=== PATIENT | female | born 1965 | race African-American/Black ===

== ENCOUNTER 2020-01-06 05:53 | Inpatient (IN) | payer OTHER ==
[2020-01-06] MEDS ORDERED: morphine CARPU-JECT 4 MG/1 ML DISP.SYRIN IVPUSH ONE (06:09)
--- NOTE | 2020-01-06 06:12 | PDOC ---
History of Present Illness - General Chief Complaint: Wound Stated Complaint: WOUND - History of Present Illness Initial Comments: 01/06/20 06:12 Ms. Purcell is a 54 yo female w/ pmh of 1 year history of R breast wound following biopsy. Patient reports wound grew following biopsy and she has been told intermittently that it was and wasn't cancerous by different physicians. Patient reports she woke up this morning and noted blood at site and called ambulance. No other complaints at this time. The patient denies chest pain, shortness of breath, headache and dizziness. Denies fever, chills, nausea, vomit, diarrhea and constipation. Denies dysuria, frequency, urgency and hematuria. Past History - Past Medical History Allergies/Adverse Reactions: Allergies Allergy/AdvReac Type Severity Reaction Status Date / Time No Known Allergies Allergy Verified 01/06/20 06:05 - Psycho Social/Smoking Cessation Hx Smoking History: Never smoked Have you smoked in the past 12 months: No Information on smoking cessation initiated: No Hx Alcohol Use: No Drug/Substance Use Hx: No Review of Systems - Review of Systems Comments:: 01/06/20 06:26 GENERAL/CONSTITUTIONAL: No fever or chills. No weakness. HEAD, EYES, EARS, NOSE AND THROAT: No change in vision. No ear pain or discharge. No sore throat. CARDIOVASCULAR: No chest pain or shortness of breath RESPIRATORY: No cough, wheezing, or hemoptysis. GASTROINTESTINAL: No nausea, vomiting, diarrhea or constipation. GENITOURINARY: No dysuria, frequency, or change in urination. MUSCULOSKELETAL: No joint or muscle swelling or pain. No neck or back pain. SKIN: +Breast wound (R) x1 year as described. NEUROLOGIC: No headache, vertigo, loss of consciousness, or change in strength/ sensation. ENDOCRINE: No increased thirst. No abnormal weight change HEMATOLOGIC/LYMPHATIC: No anemia, easy bleeding, or history of blood clots. ALLERGIC/IMMUNOLOGIC: No hives or skin allergy. *Physical Exam - Vital Signs Last Vital Signs Temp Pulse Resp BP Pulse Ox 99.9 F H 122 H 20 117/48 L 98 01/06/20 05:54 01/06/20 05:54 01/06/20 05:54 01/06/20 05:54 01/06/20 05:54 - Physical Exam 01/06/20 06:27 GENERAL: Awake, alert, and fully oriented, in no acute distress HEAD: No signs of trauma, normocephalic, atraumatic EYES: PERRLA, EOMI, sclera anicteric, conjunctiva clear ENT: Auricles normal inspection, hearing grossly normal, nares patent, oropharynx clear without exudates. Moist mucosa NECK: Normal ROM, supple, no lymphadenopathy, JVD, or masses LUNGS: No distress, speaks full sentences, clear to auscultation bilaterally HEART: Regular rate and rhythm, normal S1 and S2, no murmurs, rubs or gallops, peripheral pulses normal and equal bilaterally. ABDOMEN: Soft, nontender, normoactive bowel sounds. No guarding, no rebound. No masses EXTREMITIES: Normal inspection, Normal range of motion, no edema. No clubbing or cyanosis. NEUROLOGICAL: Cranial nerves II through XII grossly intact. Normal speech, normal gait, no focal sensorimotor deficits SKIN: [id number] fungating mass noted to R inferior breast. Otherwise warm, dry, normal turgor, no rashes or lesions noted. Medical Decision Making - Medical Decision Making 01/06/20 06:43 Ms. Purcell is a 54 yo female w/ pmh as described who presents for evaluation of breast wound. Upon exam wound appears chronic and fungating however is hemostatic at this time. Patient will be evaluated for infection complicating picture. As history and exam is extremely concerning for advanced cancer, plan for patient to be admitted for further workup. 01/06/20 06:50 Patient signed out to Dr. Mckeon for further evaluation. Discharge - Discharge Information Problems reviewed: Yes Clinical Impression/Diagnosis: Breast cancer Qualifiers: Breast location: unspecified site of breast Estrogen receptor status: unspecified Patient sex: female Laterality: unspecified laterality Qualified Code(s): C50.919 - Malignant neoplasm of unspecified site of unspecified female breast - Admission Yes - Follow up/Referral - Patient Discharge Instructions - Post Discharge Activity
[2020-01-06] MEDS ORDERED: morphine SULFATE 4 MG/ML VIAL ONE (06:13)
[2020-01-06] MEDS ORDERED: SODIUM CHLORIDE 1,000 ML IV STA ×2 (06:29→09:41)
--- NOTE | 2020-01-06 06:29 | PDOC ---
Attending Attestation - Resident Resident Name: Israel Webb - ED Attending Attestation I have performed the following: I have examined & evaluated the patient, The case was reviewed & discussed with the resident, I agree w/resident's findings & plan, Exceptions are as noted - HPI HPI: 01/06/20 07:26 See resident HPI - Physicial Exam PE: 01/06/20 07:26 Agree with documented exam - Medical Decision Making 01/06/20 07:26 54F denies pmh here for evaluation of breast wound. It has been progressive over the past year since a breast biopsy. Pt states that she has received contradictory diagnoses of cancer and not cancer. Wound is a fungating, [id number] mass with irregular border. Likely advanced cancer f/u labs, cxr, analgesia dispo per clinical course ladmit for coordination of care
--- NOTE | 2020-01-06 07:13 | PDOC ---
*Physical Exam - Vital Signs Last Vital Signs Temp Pulse Resp BP Pulse Ox 99.9 F H 122 H 20 117/48 L 98 01/06/20 05:54 01/06/20 05:54 01/06/20 05:54 01/06/20 05:54 01/06/20 05:54 ED Treatment Course - LABORATORY CBC & Chemistry Diagram: 01/06/20 06:45 01/06/20 06:45 - Medications Given in the ED: ED Medications Discontinued Medications Generic Name Dose Route Start Last Admin Trade Name Pj PRN Reason Stop Dose Admin Morphine Sulfate 4 mg 01/06/20 06:09 01/06/20 06:54 Morphine Injection - IVPUSH 01/06/20 06:10 4 mg ONCE ONE Administration Medical Decision Making - Medical Decision Making 01/06/20 07:[address] Webb. Patient is 54F here today with breast mass /wound. Wound is fungating and infected. Will treat with clindamycin. Concern also for lack of follow up. Dr Almeida consulted. CBC shows mild anemia CMP, CXR, pending EKG shows sinus tachycardia with rate of 106. No st elevations/depressions. Normal axis. Normal intervals. No significant t wave abnormalities. 01/06/20 08:48 CMP reassuring CXR shows no acute process Medicine paged 01/06/20 09:24 D/W Dr Corrales. Discharge - Discharge Information Problems reviewed: Yes Clinical Impression/Diagnosis: Breast cancer Qualifiers: Breast location: unspecified site of breast Estrogen receptor status: unspecified Patient sex: female Laterality: unspecified laterality Qualified Code(s): C50.919 - Malignant neoplasm of unspecified site of unspecified female breast Breast wound Qualifiers: Encounter type: initial encounter Laterality: right Qualified Code(s): S21.001A - Unspecified open wound of right breast, initial encounter Condition: Stable - Admission Yes - Follow up/Referral - Patient Discharge Instructions - Post Discharge Activity
[2020-01-06 07:14] LABS: BASO % 0.8 % (0-2.0); EOS % 0.2 % (0-4.5); HEMATOCRIT 29.7 % (32.4-45.2); HEMOGLOBIN 9.9 GM/dL (10.7-15.3); LYMPH % 18.6 % (8-40); MCH 27.2 pg (25.7-33.7); MCHC 33.2 g/dl (32.0-36.0); MEAN CELL VOLUME 81.9 fl (80-96); MEAN PLT VOLUME 7.8 fl (7.5-11.1); MONO % 4.4 % (3.8-10.2); PLATELET COUNT 196 K/MM3 (134-434); RBC 3.63 M/mm3 (3.60-5.2); RDW 17.8 % (11.6-15.6); WHITE BLOOD COUNT 9.8 K/mm3 (4.0-10.0)
[2020-01-06 07:47] LABS: ALBUMIN 2.9 g/dl (3.4-5.0); BILIRUBIN,TOTAL 0.3 mg/dL (0.2-1); BLOOD UREA NITROGEN 9.1 mg/dL (7-18); CALCIUM 8.6 mg/dL (8.5-10.1); CREATININE 0.9 mg/dL (0.55-1.3); POTASSIUM 3.9 mmol/L (3.5-5.1); TOT PROT 6.9 g/dl (6.4-8.2)
[2020-01-06] MEDS ORDERED: CLINDAMYCIN 600MG PREMIX IVPB 600 MG/50 ML BAG IVPB ONE ×2 (08:47→09:06)
[2020-01-06] MEDS ORDERED: ACETAMINOPHEN 1000 MG/100 ML VIAL (NON FORMULARY) IVPB ONE (09:03)
[2020-01-06] MEDS ORDERED: ACETAMINOPHEN INJECTION 100 ML IVPB ONE (09:05)
[2020-01-06] MEDS ORDERED: CLINDAMYCIN 600MG PREMIX IVPB 600 MG/50 ML BAG IVPB SCH (11:00)
--- NOTE | 2020-01-06 11:26 | HP ---
CHIEF COMPLAINT: Increased bleeding from breast wound PCP: None HISTORY OF PRESENT ILLNESS: Pt. is a 54 y.o. F w/ PMHx. of Breast CA, presents for management of R. breast wound. Sister and Tejas at present bedside. Pt. states that she had a biopsy at [facility] last Spring where she began the workup process. Pt. was unsatisfied with her treatment and sought a second opinion at [facility] which she was equally as unsatisfied with. Pt. states she gets her Anastrazole from Dr. Rodas ([facility]) who told her that this is the only thing to do since Pt. does not want chemotherapy. Pt. states she has not followed up with her oncologist but rather has been going to wound care clinic at [facility] once a month since diagnosis. Pt. states that she has been changing the dressing herself with the assistance of her sister and Fikiko. Pt. endorses being depressed and has suicidal ideation however no plan. On revisit Pt. answered question "How can I make you feel better?" with "Do you have a gun?" Pt. denies intent to harm anyone else. Pt. endorses foul smelling odor from the wound and intermittent bleeding. Pt. states that over the last 2 weeks she has been feeling increasingly tired and has been relatively bed bound. Pt. denies any recent weight loss (per Fiance Pt. has lost ~10 lbs.), tenderness to the mass, fever, chills, constipation, diarrhea, chest pain or shortness of breath. Pt. states she has never had a colonoscopy. Pt. states her last pap smear was about 4 years ago and that everything was negative. Pt. refuses Flu shot and states she has not had one. ER course was notable for: (1)CXR, IVF, Consult to Dr. Almeida. (2) (3) Recent Travel: No PAST MEDICAL HISTORY: Breast CA PAST SURGICAL HISTORY: None Social History: Smokin/2 PPD x 20 years, Quit 2 years ago Alcohol: Denies Drugs: Denies Pt. lives at home with her Fiance who has been having to increasingly help Pt. with daily activities with Pt.'s sister. 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 Allergies No Known Allergies Allergy (Verified 01/06/20 06:05) HOME MEDICATIONS: Home Medications Medication Instructions Recorded Anastrozole [Arimidex -] 1 mg PO DAILY 01/06/20 REVIEW OF SYSTEMS As above PHYSICAL EXAMINATION Vital Signs - 24 hr 01/06/20 01/06/20 01/06/20 05:54 07:30 09:20 Temperature 99.9 F H 98.7 F Pulse Rate 122 H Pulse Rate [ 95 H 87 Apical] Respiratory 20 18 18 Rate Blood Pressure 117/48 L Blood Pressure 96/66 95/60 [Right Arm] O2 Sat by Pulse 98 97 98 Oximetry (%) GENERAL: Awake, alert, and fully oriented, in no acute distress. HEAD: Normal with no signs of trauma. EYES: Pupils equal, round and reactive to light, extraocular movements intact, sclera anicteric, conjunctiva clear. EARS, NOSE, THROAT: Ears normal, nares patent, oropharynx clear without exudates. Dry mucous membranes. NECK: Normal range of motion, supple without lymphadenopathy, JVD, or masses. LUNGS: Mild bibasilar crackles No accessory muscle use. HEART: Regular rate and rhythm, normal S1 and S2 without murmur ABDOMEN: Soft, nontender, not distended, normoactive bowel sounds, no guarding, no rebound, no masses. No hepatomegaly or splenomegaly. MUSCULOSKELETAL: Normal range of motion at all joints. No bony deformities or tenderness. No CVA tenderness. On R. breast 10 x 10 cm fungating mass with some purulent? drainage and necrotic rim around the borders. UPPER EXTREMITIES: 2+ radial pulses, warm, well-perfused. No cyanosis. No clubbing. No peripheral edema. No LAD palpated. LOWER EXTREMITIES: 2+ dorsal pedal pulses, warm, well-perfused. No calf tenderness. No peripheral edema. NEUROLOGICAL: Normal speech. No focal deficits PSYCHIATRIC: Cooperative. Good eye contact. Appropriate mood and affect. Anxious and Depressed SKIN: Warm, dry except as above Laboratory Results - last 24 hr 01/06/20 01/06/20 06:45 06:45 WBC 9.8 RBC 3.63 Hgb 9.9 L Hct 29.7 L MCV 81.9 MCH 27.2 MCHC 33.2 RDW 17.8 H Plt Count 196 MPV 7.8 Absolute Neuts (auto) 7.4 Neutrophils % 76.0 Lymphocytes % 18.6 Monocytes % 4.4 Eosinophils % 0.2 Basophils % 0.8 Nucleated RBC % 0 Sodium 137 Potassium 3.9 Chloride 107 Carbon Dioxide 21 Anion Gap 9 BUN 9.1 Creatinine 0.9 Est GFR (CKD-EPI)AfAm 82.84 Est GFR (CKD-EPI)NonAf 71.48 Random Glucose 125 H Calcium 8.6 Total Bilirubin 0.3 AST 42 H ALT 37 Alkaline Phosphatase 190 H Total Protein 6.9 Albumin 2.9 L ASSESSMENT/PLAN: Pt. is a 54 y.o. F w/ PMHx. of Breast CA(on Anastrazole), presents for management of R. breast wound. #Metastatic R. Breast CA c/w Anastrazole f/u records at [facility], attempted to call ED to get records and was refused suspect Pt. has hormonal positive Breast CA given medication prescribed Heme/Onc consult appreciated Pt. resistant to chemotherapy Surgery consult appreciated f/u Echo Head CT Negative CT Chest/A/P: R. Pleural effusion, large exophytic mass, additional small R. breast mass w/ extensive lymphadenopathy, enlarged internal mammary lymph nodes , mild mediastinal and R hilar lymphadenopathy, scattered pulmonary nodules, mild retroperitoneal lymphadenopathy and multiple sclerotic bone lesions Tylenol and Morphine for pain control f/u CEA, CA 19-9, CA 125 #Normocytic Anemia Hgb: 9.9, MCV 81.9 f/u Iron studies, ferritin likely secondary to frequent blood loss from R. breast mass and #Hydronephrosis On Abd. US and CT A/P: there is a 10 x 8 mm obstructing calculus in R. proximal ureter, distended bladder Urology consult to Dr. Valdovinos Consult to ID appreciated Will start Meropenem 500mg Q8H, give Vanco 1gm for possibly infected stone. #Depression Pt. endorses clear suicidal ideation without planm but has made several comments as noted above that raise some alarm. Nevertheless Pt. states she would like to be full code, therefore will not place Pt. on 1:1 at this time, but consult to Dr. Avery is appreciated for medication guidance. Consult to palliative care is also appreciated. #FEN NS @ 100 monitor electrolytes and replete as needed Regular Diet #DVT Ppx. Lovenox 40mg SQ Visit type - Emergency Visit Emergency Visit: Yes ED Registration Date: 01/06/20 Care time: The patient presented to the Emergency Department on the above date and was hospitalized for further evaluation of their emergent condition. - New Patient This patient is new to me today: Yes Date on this admission: 01/08/20 - Critical Care Critical Care patient: No ATTENDING PHYSICIAN STATEMENT I saw and evaluated the patient. I reviewed the resident's note and discussed the case with the resident. I agree with the resident's findings and plan as documented. SUBJECTIVE: OBJECTIVE: ASSESSMENT AND PLAN:
--- NOTE | 2020-01-06 13:25 | CONSULT ---
Consultation: CONSULT SERVICE: Hematology/Oncology Resident HISTORY OF PRESENT ILLNESS: 54yo F with h/o Breast Ca (unknown typing; biopsy and w/u performed with Dr. Rodas ([facility]). At that time pt received a biopsy, however did not follow-up and had resulting breast wound that did not heal. She went to [facility] for a second opinion and she once again did not continue to follow there. Pt has been going tot he wound care clinic at [facility] every month since her diagnosis about 1 year prior and has not followed with any oncologist since. Pt reports receiving Anastrozole for the past year and does not recall any other medications she has had prior. Pt is highly resistant to any chemotherapy. Pt's wound progressed with her noticing foul odors, intermittent bleeding and questionable purulence. At this point she sought medical evaluation and presented to this facility Currently, pt is depressed and expresses suicidal ideation with no plan. She endorses generalized fatigue and has declined in her functional status since diagnosis with dependence on her sister and fiance for dressing changes of her breast. Pt endorses decreased appetite. Denies any fever/chills, rigors, cough, SOB, CP/discomfort, abdominal pain, increasing edema in any extremity, myalgias , arthralgias, numbness/tingling, n/v/d/c PMHx: As above PSHx: Breast biopsy SoHx: Tobacco - 10 pack year history; quit 2 years ago Alcohol - Denies Drugs - Denies REVIEW OF SYSTEMS: As per HPI PHYSICAL EXAMINATION Vital Signs - 24 hr 01/06/20 01/06/20 01/06/20 05:54 07:30 09:20 Temperature 99.9 F H 98.7 F Pulse Rate 122 H Pulse Rate [ 95 H 87 Apical] Respiratory 20 18 18 Rate Blood Pressure 117/48 L Blood Pressure 96/66 95/60 [Right Arm] O2 Sat by Pulse 98 97 98 Oximetry (%) GENERAL: Awake, alert, and fully oriented,NAD HEENT: NC/AT, ROSELINE, EOMI, sclera anicteric, MMM without thrush NECK: No cervical lymphadenopathy LUNGS: Mild bibasilar crackles No accessory muscle use. BREAST: 10x10 R necrotic wound/mass at 8:00 positioning, minor purulence noted on wound. HEART: RRR, normal S1 and S2 without murmur ABDOMEN: Soft, NT/ND, normoactive bowel sounds, no guarding, no rebound, no masses. No hepatomegaly or splenomegaly. EXTREMITIES: 2+ DP pulses, warm, No calf tenderness. No peripheral edema. PSYCHIATRIC: Cooperative. Good eye contact. Anxious and Depressed LN: R axillary lymphadenopathy appreciated Laboratory Results - last 24 hr 01/06/20 01/06/20 06:45 06:45 WBC 9.8 RBC 3.63 Hgb 9.9 L Hct 29.7 L MCV 81.9 MCH 27.2 MCHC 33.2 RDW 17.8 H Plt Count 196 MPV 7.8 Absolute Neuts (auto) 7.4 Neutrophils % 76.0 Lymphocytes % 18.6 Monocytes % 4.4 Eosinophils % 0.2 Basophils % 0.8 Nucleated RBC % 0 Sodium 137 Potassium 3.9 Chloride 107 Carbon Dioxide 21 Anion Gap 9 BUN 9.1 Creatinine 0.9 Est GFR (CKD-EPI)AfAm 82.84 Est GFR (CKD-EPI)NonAf 71.48 Random Glucose 125 H Calcium 8.6 Total Bilirubin 0.3 AST 42 H ALT 37 Alkaline Phosphatase 190 H Total Protein 6.9 Albumin 2.9 L Active Medications Generic Name Dose Route Start Last Admin Trade Name Freq PRN Reason Stop Dose Admin Enoxaparin Sodium 40 mg 01/06/20 11:30 Lovenox - SQ DAILY [facility] Clindamycin Phosphate 600 mg in 50 mls @ 100 mls/hr 01/06/20 18:00 Cleocin 600 Mg Premix Ivpb - IVPB Q8H-IV PAMELLA Protocol Sodium Chloride 1,000 mls @ 100 mls/hr 01/06/20 11:30 Normal Saline - IV ASDIR PAMELLA Morphine Sulfate 2 mg 01/06/20 11:22 Morphine Sulfate IVPUSH Q4H PRN PAIN LEVEL 6-10 ASSESSMENT/PLAN: Stage IV Breast Ca with mets to LN throughout Necrotic R breast mass Normocytic anemia Depression with suicidal ideation --CT imaging performed and awaiting read --? pulmonary nodules alongside of axillary lymphadenopathy R (by my read) --In interim trying to receive records from [facility] services regarding pathology, hormonal positives and metastatic workup --Bone scan with potential bone biopsy for confirmation of mets --Patient reportedly on anastrozole and would ideally need it for minimum 3-5 years pending pathology typing --Due to advanced local invasion would need surgical evaluation for resection recommendations vs. wound care --Anemia likely related to above and can perform iron studies with ferritin with AM labs --Psych evaluation appreciated for suicidal ideation without planning --Rest per primary teams and will follow alongside --CA 19-9 and CA 125 already ordered. will f/u Case discussed with Dr. Ewelina Hopkins, DO - IM PGy-3 Visit type - Emergency Visit Emergency Visit: Yes ED Registration Date: 01/06/20 Care time: The patient presented to the Emergency Department on the above date and was hospitalized for further evaluation of their emergent condition. - New Patient This patient is new to me today: Yes Date on this admission: 01/06/20 - Critical Care Critical Care patient: No ATTENDING PHYSICIAN STATEMENT I saw and evaluated the patient. I reviewed the resident's note and discussed the case with the resident. I agree with the resident's findings and plan as documented. SUBJECTIVE: OBJECTIVE: ASSESSMENT AND PLAN:
[2020-01-06] MEDS: SODIUM CHLORIDE 1,000 ML IV SCH (14:30)
--- NOTE | 2020-01-06 15:05 | ECHO ---
Name: JEREMY LA Exam:Adult Echocardiogram Study Date: 01/06/2020 01:21 PM Age: 54 yrs Reason For Study: Cancer Height: 60 in Weight: 110 lb BSA: 1.4 m2 MMode/2D Measurements & Calculations IVSd: 1.0 cm Ao root diam: 2.8 cm LVIDd: 4.1 cm LA dimension: 2.7 cm LVIDs: 2.7 cm ACS: 1.9 cm LVPWd: 0.90 cm EDV(Teich): 73.4 ml LVOT diam: 2.0 cm ESV(Teich): 26.6 ml LAV (MOD-bp): 33.0 ml TAPSE: 2.3 cm RV S Randell: 15.9 cm/sec Doppler Measurements & Calculations MV E max randell: 72.6 cm/sec Ao V2 max: 111.0 cm/sec MV A max randell: 54.8 cm/sec Ao max P.9 mmHg MV E/A: 1.3 Ao V2 mean: 79.5 cm/sec MV dec time: 0.13 sec Ao mean P.8 mmHg Ao V2 VTI: 23.5 cm GLORIA(I,D): 1.9 cm2 GLORIA(V,D): 2.2 cm2 LV V1 max P.5 mmHg MR max randell: 469.1 cm/sec LV V1 mean P.0 mmHg MR max P.0 mmHg LV V1 max: 79.5 cm/sec LV V1 mean: 46.4 cm/sec LV V1 VTI: 14.7 cm SV(LVOT): 45.5 ml TR max randell: 208.3 cm/sec TR max P.6 mmHg PA V2 max: 84.2 cm/sec PI end-d randell: 80.1 cm/sec PA max P.8 mmHg Med Peak E' Randell: 6.3 cm/sec Pulm Sys Randell: 78.5 cm/sec Med E/e': 11.5 Pulm Laird Randell: 64.7 cm/sec Lat Peak E' Randell: 11.0 cm/sec Pulm S/D: 1.2 Lat E/e': 6.6 Left Ventricle Left ventricular systolic function is normal. Ejection Fraction = 55-60%. The transmitral spectral Do ppler flow pattern is normal for age. Right Ventricle The right ventricle is normal in size and function. Atria Normal left and right atrial size and function. Mitral Valve The mitral valve is normal in structure and function. There is no mitral valve stenosis. There is mil d mitral regurgitation. Tricuspid Valve The tricuspid valve is normal in structure and function. There is mild tricuspid regurgitation. Right ventricular systolic pressure is normal. Aortic Valve The aortic valve opens well. No hemodynamically significant valvular aortic stenosis. No aortic regur gitation is present. Pulmonic Valve The pulmonic valve is not well seen, but is grossly normal. There is no pulmonic valvular stenosis. T race to mild pulmonic valvular regurgitation. Great Vessels The aortic root is normal size. Pericardium/Pleura There is no pericardial effusion. Interpretation Summary Left ventricular systolic function is normal. Ejection Fraction = 55-60%. The right ventricle is normal in size and function. There is mild mitral regurgitation. There is mild tricuspid regurgitation. Right ventricular systolic pressure is normal. There is no pericardial effusion. MD Harkins *Graciela 01/06/2020 03:04 PM
[2020-01-06] MEDS ORDERED: VANCOMYCIN 1 GM in D5W (PRE-DOCKED) 1,000 MG/250 ML IVPB ONE (15:37)
--- NOTE | 2020-01-06 16:06 | CON.GU ---
Consult Consult Specialty:: Referred by:: Medicine Reason for Consultation:: right ureteral stone, hydro - History of Present Illness Chief Complaint: right ureteral stone, hydro History of Present Illness: 54 year old with a previous history of untreated kidney stones who presents with an infected, fungating breast mass c/w malignancy. During CT scan for metastatic work up she was noted to have bilateral renal stones and a 9.6mm proximal ureteral calculus with hydro. Patient does not report any recent renal colic and appears well and non-toxic - History Source History Provided By: Patient Limitations to Obtaining History: No Limitations - Past Medical History Renal/: Yes: Renal Calculi - Alcohol/Substance Use Hx Alcohol Use: No - Smoking History Smoking history: Never smoked Have you smoked in the past 12 months: No Home Medications - Allergies Allergies/Adverse Reactions: Allergies Allergy/AdvReac Type Severity Reaction Status Date / Time No Known Allergies Allergy Verified 01/06/20 06:05 - Home Medications Home Medications: Ambulatory Orders Anastrozole [Arimidex -] 1 mg PO DAILY 01/06/20 Review of Systems - Review of Systems Genitourinary: denies: Flank Pain Physical Exam- Vital Signs: Vital Signs Temperature 98.7 F 01/06/20 07:30 Pulse Rate 87 01/06/20 09:20 Respiratory Rate 18 01/06/20 09:20 Blood Pressure 95/60 01/06/20 09:20 O2 Sat by Pulse Oximetry (%) 98 01/06/20 09:20 Renal/: No: CVA Tenderness - Left, CVA Tenderness - Right, Conde Present, Hematuria Kidneys: No: Flank Pain Left, FLank Pain Right Labs: CBC, BMP 01/06/20 06:45 01/06/20 06:45 Imaging - Results Cat Scan: Report Reviewed Problem List - Problems (1) Right ureteral calculus Assessment/Plan: patient is asymptomatic currently and does not appear septic or toxic. She comfortable in bed eating. Her WBC is normal. Infected stone does not appear likely but urinanalysis and urine culture have not been sent. These are ordered. She will need ureteroscopy and laser lithotripsy with stent however her breast mass appears to be more acute. will follow Code(s): N20.1 - CALCULUS OF URETER (2) Hydronephrosis, right Code(s): N13.30 - UNSPECIFIED HYDRONEPHROSIS
[2020-01-06] MEDS ORDERED: DEXTROSE 5%-WATER 100 ML IVPB ONE (16:33)
[2020-01-06] MEDS ORDERED: MEROPENEM 500 MG VIAL (RESTRICTED TO ID) IVPB ONE (16:33)
[2020-01-06] MEDS: MEROPENEM 500 MG in DEXTROSE 5%-WATER 100 ML IVPB SCH (16:42)
--- NOTE | 2020-01-06 17:45 | CON.PSY ---
Psychiatry Consult Chief Complaint: I am not suicidal , i was upset. I dont have a psych illness. - Previous Psychiatric Treatment Outpatient: None Inpatient: None - Previous Substance Abuse Treatment Outpatient: None Inpatient: None - Current Medications Current Medications: Active Medications Anastrozole (Arimidex -) 1 mg PO DAILY PAMELLA Enoxaparin Sodium (Lovenox -) 40 mg SQ DAILY PAMELLA Clindamycin Phosphate (Cleocin 600 Mg Premix Ivpb -) 600 mg in 50 mls @ 100 mls /hr IVPB Q8H-IV PAMELLA; Protocol Sodium Chloride (Normal Saline -) 1,000 mls @ 100 mls/hr IV ASDIR PAMELLA Last Admin: 01/06/20 14:30 Dose: Not Given Meropenem 500 mg/ Dextrose 100 mls @ 200 mls/hr IVPB Q8H-IV PAMELLA Meropenem 500 mg/ Dextrose 100 mls @ 200 mls/hr IVPB Q8H-IV PAMELLA Stop: 01/07/20 10:29 Last Admin: 01/06/20 16:42 Dose: 200 mls/hr Morphine Sulfate (Morphine Sulfate) 2 mg IVPUSH Q4H PRN PRN Reason: PAIN LEVEL 6-10 - Allergies Allergies: Allergies Allergy/AdvReac Type Severity Reaction Status Date / Time No Known Allergies Allergy Verified 01/06/20 06:05 - Current Living Status Usual Living Arrangement: With Significant Other - Current Mental Status Evaluation Appearance: Well Groomed Attitude: Cooperative - Affect Affect: Full Range Appropriateness: Appropriate to Content - Mood Mood: Euthymic - Speech/Language Expressive: Coherent - Psychomotor Activity Psychomotor Activity: Normal - Thought Process Thought Process: Intact - Thought Content Hallucinations: Absent Delusions: Absent - Self Perception Self Perception: No Impairment - Cognition Attention: Alert Orientation: Time Memory, Immediate Recall: Intact Memory, Short Term: 3/3 Memory, Remote with Promptin/3 - Concentration Serial Sevens Intact: Yes Simple Calculations Intact: Yes - Abstraction Proverb Interpretation: Intact Judgement: Intact - Insight Insight: Intact - Impulse Control Impulse Control: Good Control - Suicidal Ideation Suicidal Ideation: No - Homicidal Ideation Homicidal Ideation: No Assessment/Plan 1) No acute Psych illness. 2Patient is not Suicidal ar4t this time.
[2020-01-06] MEDS: CLINDAMYCIN 600MG PREMIX IVPB 600 MG/50 ML BAG IVPB SCH (18:13)
--- NOTE | 2020-01-06 18:17 | PN ---
Teaching Attending Note Name of Resident: Ran Corrales ATTENDING PHYSICIAN STATEMENT I saw and evaluated the patient. I reviewed the resident's note and discussed the case with the resident. I agree with the resident's findings and plan as documented. Seen and examined; please see resident note for further historical information. I personally verified all delgado historical information and exam findings. Personally interpreted all imaging and diagnostics and reviewed appropriate consults. I reviewed all labs and vital signs as per resident note and EMR as documented. I agree with the above assessment and plan unless supplemented by myself in the following. Seen and examined, pending oncology records. The patient is nonsuicidal per my assessment and was having some success of passive ideation. Furthermore, the patient is indicated is being non-compliant with her prior recommended treatment of breast cancer.She has a fungating mass on her right upper extremity near the axilla and is pending imaging. Oncology will be consulted as well as wound care. Surgical services will be consulted for biopsy. We will obtain old records. 10 item review of systems completed and is negative aside from as discussed in the subjective data in my own/the resident documentation. VS, labs, imaging reviewed NAD, AAO, resting comfortably in bed. RRR s1/2 no mgr Normal muscle tone, moves all 5 extremities with normal apparent strength Neck is supple, trachea midline, no pio LN Lungs CTAB with sym expansion NT ND +BS no pio organomegaly CN2-12 wnl; no FND NC AT EOMI PERRLA Normal mood, appropriate behavior, euthymic affect No skin breakdown or rashes noted Assessment and plan: Patient is a 54-year-old -[place] female with a past medical history of cancer noncompliance with treatment, currently only taking anastrozole. She has a large fungating breast mass and is pending biopsy and wound care recommendations. Problems include: Breast cancer, likely metastatic, treatment course none known. Pending records Breast Wound secondary to cancer mass Full code
[2020-01-06] MEDS: ENOXAPARIN NA (PORCINE) 40 MG/0.4 ML DISP.SYRIN SQ SCH (18:59)
[2020-01-06 21:27] LABS: INR 1.28 (0.83-1.09); PROTHROMBIN TIME (PATIENT) 15.2 SEC (9.7-13.0)
[2020-01-06 21:38] LABS: IRON SERUM 58 ug/dL (50-175); TOTAL IRON BINDING CAPACITY 207 ug/dL (250-450)
[2020-01-06] MEDS: MORPHINE SULFATE 2 MG/ML VIAL IVPUSH PRN (21:41)
--- NOTE | 2020-01-06 22:03 | PN ---
Teaching Attending Note Name of Resident: Wally Hopkins ATTENDING PHYSICIAN STATEMENT I saw and evaluated the patient. I reviewed the resident's note and discussed the case with the resident. I agree with the resident's findings and plan as documented. 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 Had refused systemic Her2 targeeted therapy and systeic therapy. CT Chest/A/P: R. Pleural effusion, large exophytic mass, additional small R. breast mass w/ extensive lymphadenopathy, enlarged internal mammary lymph nodes , mild mediastinal and R hilar lymphadenopathy, scattered pulmonary nodules, mild retroperitoneal lymphadenopathy and multiple sclerotic bone lesions Patient presents with bleeding and discharge from the wound Will request wound care consult Continue IV antibiotics Will consider bone scan and biopsy of bone lesion to confirm metastatic disease and would consider biopsy of primary breast lesionand rechecking ER/[place]/Her2 Will rediscuss Her2 targeted therapy with patient
[2020-01-06 23:57] LABS: EPI CELLS 1.7 /HPF (0-5/HPF); HYALINE CASTS 0 /lpf (0-8); PH,URINE 6.5 (5.0-8.0); URINE APPEARANCE CLEAR; URINE BILIRUBIN NEGATIVE (NEGATIVE); URINE COLOR YELLOW; URINE GLUCOSE (UA) NEGATIVE (NEGATIVE); URINE KETONE NEGATIVE (NEGATIVE); URINE LEUK ESTERASE TRACE (NEGATIVE); URINE NITRITE NEGATIVE (NEGATIVE); URINE PROTEIN NEGATIVE (NEGATIVE); URINE RBC 2 /hpf (0-4); URINE WBC 6 /hpf (0-5)
[2020-01-07] MEDS ORDERED: MEROPENEM 500 MG VIAL (RESTRICTED TO ID) IVPB ONE ×2 (01:39→11:58)
[2020-01-07] MEDS ORDERED: DEXTROSE 5%-WATER 100 ML IVPB ONE ×2 (01:40→11:58)
[2020-01-07] MEDS: SODIUM CHLORIDE 1,000 ML IV SCH (01:46)
[2020-01-07] MEDS: MEROPENEM 500 MG in DEXTROSE 5%-WATER 100 ML IVPB SCH ×3 (01:47→12:03)
[2020-01-07] MEDS: MORPHINE SULFATE 2 MG/ML VIAL IVPUSH PRN (01:48)
[2020-01-07] MEDS: CLINDAMYCIN 600MG PREMIX IVPB 600 MG/50 ML BAG IVPB SCH ×3 (02:41→18:11)
--- NOTE | 2020-01-07 08:03 | PN ---
Physical Exam: SUBJECTIVE: Patient seen and examined; No new complaints. Seen by urology. Urology services presents with very unsure how the patient had no UA or culture ordered by the resident after the imaging results were discussed. Overnight tachy again to 120s. No repeat EKG or call. Given intermittent tachy would like to r/o underlying arrhythmia and monitor on tele x24. She is high risk for PE, etc. and remains on DVT ppx (chemical and mechanical given high risk). 10 item review of systems completed and is negative aside from as discussed in the subjective data in my own/the resident documentation. OBJECTIVE: Vital Signs Period Temp Pulse Resp BP Sys/Laird Pulse Ox Last 24 Hr 98.1 F-98.9 F 72-120 18-18 95-121/59-73 98-100 VS, labs, imaging reviewed NAD, AAO, resting comfortably in bed. RRR s1/2 no mgr Normal muscle tone, moves all 5 extremities with normal apparent strength Neck is supple, trachea midline, no pio LN Lungs CTAB with sym expansion NT ND +BS no pio organomegaly CN2-12 wnl; no FND NC AT EOMI PERRLA Normal mood, appropriate behavior, euthymic affect No skin breakdown or rashes noted Fungating right breast mass Laboratory Results - last 24 hr 01/06/20 01/06/20 01/06/20 19:40 19:40 19:40 ESR 64 H PT with INR 15.20 H INR 1.28 H Iron TIBC Iron Saturation Unsaturated IBC Urine Color Urine Appearance Urine pH Ur Specific [place] Urine Protein Urine Glucose (UA) Urine Ketones Urine Blood Urine Nitrite Urine Bilirubin Urine Urobilinogen Ur Leukocyte Esterase Urine WBC (Auto) Urine RBC (Auto) Urine Casts (Auto) U Epithel Cells (Auto) Urine Bacteria (Auto) Blood Type O POSITIVE Antibody Screen Negative 01/06/20 01/06/20 19:40 21:00 ESR PT with INR INR Iron 58 TIBC 207 L Iron Saturation 28 Unsaturated IBC 149 L Urine Color Yellow Urine Appearance Clear Urine pH 6.5 Ur Specific [place] 1.021 Urine Protein Negative Urine Glucose (UA) Negative Urine Ketones Negative Urine Blood Negative Urine Nitrite Negative Urine Bilirubin Negative Urine Urobilinogen 1.0 Ur Leukocyte Esterase Trace Urine WBC (Auto) 6 Urine RBC (Auto) 2 Urine Casts (Auto) 0 U Epithel Cells (Auto) 1.7 Urine Bacteria (Auto) 37.0 Blood Type Antibody Screen Active Medications Generic Name Dose Route Start Last Admin Trade Name Freq PRN Reason Stop Dose Admin Anastrozole 1 mg 01/07/20 10:00 Arimidex - PO DAILY PAMELLA Enoxaparin Sodium 40 mg 01/06/20 11:30 01/06/20 18:59 Lovenox - SQ Not Given DAILY PAMELLA Clindamycin Phosphate 600 mg in 50 mls @ 100 mls/hr 01/06/20 18:00 01/07/20 02:41 Cleocin 600 Mg Premix Ivpb - IVPB 100 mls/hr Q8H-IV PAMELLA Administration Protocol Sodium Chloride 1,000 mls @ 100 mls/hr 01/06/20 11:30 01/07/20 01:46 Normal Saline - IV 100 mls/hr ASDIR PAMELLA Administration Meropenem 500 mg/ Dextrose 100 mls @ 200 mls/hr 01/06/20 18:00 IVPB Q8H-IV PAMELLA Meropenem 500 mg/ Dextrose 100 mls @ 200 mls/hr 01/06/20 16:00 01/07/20 01:47 IVPB 01/07/20 10:29 200 mls/hr Q8H-IV PAMELLA Administration Morphine Sulfate 2 mg 01/06/20 11:22 01/07/20 01:48 Morphine Sulfate IVPUSH 2 mg Q4H PRN Administration PAIN LEVEL 6-[address] chest abdomen pelvis with contrast reveals large exophytic breast mass with strong suspicion of malignancy, small right breast mass with extensive right axillary lymphadenopathy also consistent with malignancy recommending additional breast imaging studies, enlarged right internal mammary lymph node suspicious for metastatic disease, mild mediastinal and hilar infantile adenopathy, scattered pulmonary nodules, right. Retroperitoneal lymphadenopathy , multiple sclerotic bone lesions suspicious for metastatic disease, with nuclear bone scan recommended Echo: Left ventricle and right ventricle is normal in size and function with mild MR mild TR with RVSP normal and no pericardial effusion Chest x-ray reveals scoliosis but no acute cardiopulmonary disease ASSESSMENT/PLAN: Seen and examined; presents for fungating breast mass with history of noncompliance with full oncologic recommendation presenting with worsening of the wound found to have R-hydro 2/2 ureteral stone as well as intermittent tachycardia and depression. No SI per psych. -Breast wound secondary to malignancy -[id number] R-IDC, ER+ (90%), [place]-, HER2+ by FISH 2017, on anastrazole with refusal of HER-2 targeted and systemic therapy. She refused treatment, according to her , due to her feeling the hospital wasn't taking her seriously. -Right ureteral stone, right hydronephrosis. She will need ureteroscopy and procedure with urology, can discuss with her service -Depression; >1yr of symptoms. -Intermittent Tachycardia; repeating EKG, ordering cardiac monitoring. Full Code Visit type - Emergency Visit Emergency Visit: Yes ED Registration Date: 01/06/20 Care time: The patient presented to the Emergency Department on the above date and was hospitalized for further evaluation of their emergent condition. - New Patient This patient is new to me today: No - Critical Care Critical Care patient: No
[2020-01-07] MEDS: ENOXAPARIN NA (PORCINE) 40 MG/0.4 ML DISP.SYRIN SQ SCH (09:25)
[2020-01-07 09:43] LABS: HEMATOCRIT 25.5 % (32.4-45.2); HEMOGLOBIN 8.4 GM/dL (10.7-15.3); MCH 27.1 pg (25.7-33.7); MEAN CELL VOLUME 81.9 fl (80-96); MEAN PLT VOLUME 7.2 fl (7.5-11.1); PLATELET COUNT 178 K/MM3 (134-434); RBC 3.11 M/mm3 (3.60-5.2); RDW 18.2 % (11.6-15.6); WHITE BLOOD COUNT 6.6 K/mm3 (4.0-10.0)
[2020-01-07] MEDS ORDERED: ANASTROZOLE 1 MG TABLET PO SCH (10:00)
--- NOTE | 2020-01-07 10:11 | CONSULT ---
- Consultation REQUESTING PROVIDER: Malena MCKEON CONSULT REQUEST: We have been asked to surgically evaluate this patient for a fungating right breast mass. PCP:Emeka Guy MD HISTORY OF PRESENT ILLNESS:CARSON who is a 54 y/o A/A female who had a right breast bx. ~ 1 year ago at [facility] for a ? palpable vs. imaging abnormality right breast which revealed carcinoma; she was started on hormone tx.; ? neoadjuvant ? ; hx. is extremely unreliable from the patient; nevertheless she did not f/u and now after 1 year has a fungating mass involving the right medial breast and axilla. PMHx: ? PSHx: ? Home Medications Medication Instructions Recorded Anastrozole [Arimidex -] 1 mg PO DAILY 01/06/20 Allergies Allergy/AdvReac Type Severity Reaction Status Date / Time No Known Allergies Allergy Verified 01/06/20 06:05 REVIEW OF SYSTEMS:uncooperative and only as stated above. PHYSICAL EXAM: GENERAL: Awake, alert, and fully oriented, in no acute distress; appears to lack insight into her problem.. HEAD: Normal with no signs of trauma. EYES: PERRL, sclera anicteric, conjunctiva clear. NECK: Normal ROM, supple without lymphadenopathy, JVD, or masses. ABDOMEN: Soft, nontender, not distended, normoactive bowel sounds, no guarding, no rebound, no masses. No organomegaly. MUSCULOSKELETAL: Normal ROM at all joints. No bony deformities or tenderness. No CVA tenderness. UPPER EXTREMITIES: 2+ pulses, warm, well-perfused. No cyanosis. Cap refill <2 seconds. No peripheral edema. LOWER EXTREMITIES: 2+ pulses, warm, well-perfused. No calf tenderness. No peripheral edema. NEUROLOGICAL: Normal speech, gait not observed. PSYCH: Cooperative. Good eye contact. Appropriate mood and affect. SKIN: Warm, dry, normal turgor, no rashes or lesions noted. BREASTS: limited to the right; fungating clinical carcinoma w/frozen axilla; exam limited by patient. Vital Signs Temperature 99.5 F 01/07/20 09:20 Pulse Rate 110 H 01/07/20 09:20 Respiratory Rate 18 01/07/20 09:20 Blood Pressure 113/72 01/07/20 09:20 O2 Sat by Pulse Oximetry (%) 100 01/06/20 21:00 Lab Results WBC 6.6 K/mm3 (4.0-10.0) 01/07/20 08:30 RBC 3.11 M/mm3 (3.60-5.2) L 01/07/20 08:30 Hgb 8.4 GM/dL (10.7-15.3) L 01/07/20 08:30 Hct 25.5 % (32.4-45.2) L 01/07/20 08:30 MCV 81.9 fl (80-96) 01/07/20 08:30 MCHC 33.0 g/dl (32.0-36.0) 01/07/20 08:30 RDW 18.2 % (11.6-15.6) H 01/07/20 08:30 Plt Count 178 K/MM3 (134-434) 01/07/20 08:30 Sodium 137 mmol/L (136-145) 01/06/20 06:45 Potassium 3.9 mmol/L (3.5-5.1) 01/06/20 06:45 Chloride 107 mmol/L (98-107) 01/06/20 06:45 Carbon Dioxide 21 mmol/L (21-32) 01/06/20 06:45 Anion Gap 9 MMOL/L (8-16) 01/06/20 06:45 BUN 9.1 mg/dL (7-18) 01/06/20 06:45 Creatinine 0.9 mg/dL (0.55-1.3) 01/06/20 06:45 Random Glucose 125 mg/dL (74-106) H 01/06/20 06:45 Calcium 8.6 mg/dL (8.5-10.1) 01/06/20 06:45 Blood Type O POSITIVE 01/06/20 19:40 Antibody Screen Negative 01/06/20 19:40 INR 1.28 (0.83-1.09) H 01/06/20 19:40 Imaging w/u to date reviewed and c/w metastatic disease. IMP: Clinical Stage IV carcinoma of the right breast. PLAN: Advise local wound care and Oncology evaluation for palliative tx.; there is no indication for surgical intervention in this case. Doug Almeida MD FACS
[2020-01-07 10:15] LABS: BLOOD UREA NITROGEN 7.3 mg/dL (7-18); CALCIUM 8.2 mg/dL (8.5-10.1); CREATININE 0.9 mg/dL (0.55-1.3); MAGNESIUM 1.9 mg/dL (1.8-2.4); PHOSPHOROUS 4.1 mg/dL (2.5-4.9); POTASSIUM 4.3 mmol/L (3.5-5.1)
--- NOTE | 2020-01-07 11:10 | PN ---
Progres Note Chief Complaint: ureteral calculus - Objective Vital Signs: Vital Signs Temperature 99.5 F 01/07/20 09:20 Pulse Rate 110 H 01/07/20 09:20 Respiratory Rate 18 01/07/20 09:20 Blood Pressure 113/72 01/07/20 09:20 O2 Sat by Pulse Oximetry (%) 100 01/06/20 21:00 Labs/Additional Data: CBC, BMP 01/07/20 08:30 01/07/20 06:00 INR, PTT INR 1.28 (0.83-1.09) H 01/06/20 19:40 Blood Type Blood Type O POSITIVE 01/06/20 19:40 Antibody Screen Negative 01/06/20 19:40 Problem List - Problems (1) Hydronephrosis, right Assessment/Plan: Metastatic breast cancer Right 10 mm prox ureteral stone w hydronephrosis currently no pain If signs of sepsis recommend percutaneous nephrostomy under local monitor for signs of SIRS if develops consult Int radiology for pcn Code(s): N13.30 - UNSPECIFIED HYDRONEPHROSIS
[2020-01-07] MEDS ORDERED: MORPHINE SULFATE 2 MG/ML VIAL IVPUSH PRN (11:14)
--- NOTE | 2020-01-07 12:57 | CON.ID ---
Consult - Past Medical History Renal/: Yes: Renal Calculi ...LMP Comment: lmp 7 yrs ago - Alcohol/Substance Use Hx Alcohol Use: No - Smoking History Smoking history: Never smoked Have you smoked in the past 12 months: No - Social History Usual Living Arrangement: With Significant Other Home Medications - Allergies Allergies/Adverse Reactions: Allergies Allergy/AdvReac Type Severity Reaction Status Date / Time No Known Allergies Allergy Verified 01/06/20 06:05 - Home Medications Home Medications: Ambulatory Orders Anastrozole [Arimidex -] 1 mg PO DAILY 01/06/20 Physical Exam Vital Signs: Vital Signs Temperature 99.5 F 01/07/20 09:20 Pulse Rate 110 H 01/07/20 09:20 Respiratory Rate 18 01/07/20 09:20 Blood Pressure 113/72 01/07/20 09:20 O2 Sat by Pulse Oximetry (%) 98 01/07/20 10:00 Labs: CBC, BMP 01/07/20 08:30 01/07/20 06:00
[2020-01-07] MEDS ORDERED: PT OWN MED DRAWER 7, Y5N ONE (14:35)
--- NOTE | 2020-01-07 14:35 | EKG ---
Test Reason : Blood Pressure : / mmHG Vent. Rate : 106 BPM Atrial Rate : 106 BPM P-R Int : 140 ms QRS Dur : 076 ms QT Int : 358 ms P-R-T Axes : 064 028 049 degrees QTc Int : 475 ms SINUS TACHYCARDIA OTHERWISE NORMAL ECG Confirmed by MD VANDANA, DAISHA ([id number]) on 01/07/2020 2:34:37 PM Referred By: Confirmed By:DAISHA ROSS MD
[2020-01-07] MEDS: AMPICILLIN NA/SULBACTAM NA 3 GM in SODIUM CHLORIDE 100 ML IVPB SCH ×2 (14:37→18:11)
[2020-01-07] MEDS ORDERED: MEROPENEM 500 MG in DEXTROSE 5%-WATER 100 ML IVPB SCH (18:00)
[2020-01-07] MEDS ORDERED: ACETAMINOPHEN WITH CODEINE 300MG/30MG TABLET PO ONE (21:23)
[2020-01-08] MEDS: AMPICILLIN NA/SULBACTAM NA 3 GM in SODIUM CHLORIDE 100 ML IVPB SCH ×3 (01:52→19:00)
[2020-01-08] MEDS: CLINDAMYCIN 600MG PREMIX IVPB 600 MG/50 ML BAG IVPB SCH ×3 (02:05→17:07)
--- NOTE | 2020-01-08 08:28 | PN ---
Teaching Attending Note Name of Resident: Mason Ahmadi ATTENDING PHYSICIAN STATEMENT I saw and evaluated the patient. I reviewed the resident's note and discussed the case with the resident. I agree with the resident's findings and plan as documented. Seen and examined; please see resident note for further historical information. I personally verified all delgado historical information and exam findings. Personally interpreted all imaging and diagnostics and reviewed appropriate consults. I reviewed all labs and vital signs as per resident note and EMR as documented. I agree with the above assessment and plan unless supplemented by myself in the following. SUBJECTIVE: Seen and examined, she feels disrespected by the staff here and request to switch physicians. This is curious as I had not even spoken to her and neither have my resident when she decided that she was offended. She told me that it was everybody and that we were the same as the people at [facility] and that we were "in cahoots "with them. She had Allergic reaction to the Zosyn and this was added to her medication allergies list. She is hemodynamically stable and afebrile she has no new complaints.Infectious disease was updated and they are switching antibiotics. Culture grew out multiple organisms but this was a superficial culture and likely represents environmental organisms as opposed to the true infective cause , if infection is determined to still be present. 10 item review of systems completed and is negative aside from as discussed in the subjective data in my own/the resident documentation. OBJECTIVE: VS, labs, imaging reviewed NAD, AAO, resting comfortably in bed. RRR s1/2 no mgr Normal muscle tone, moves all 5 extremities with normal apparent strength Neck is supple, trachea midline, no pio LN Lungs CTAB with sym expansion NT ND +BS no pio organomegaly CN2-12 wnl; no FND NC AT EOMI PERRLA Normal mood, appropriate behavior, euthymic affect No skin breakdown or rashes noted. Guarded behavior, poor insight. ASSESSMENT AND PLAN: Seen and examined; presents for fungating breast mass with history of noncompliance with full oncologic recommendation presenting with worsening of the wound found to have R-hydro 2/2 ureteral stone as well as intermittent tachycardia and depression. No SI per psych. Continuing on abx per ID for empiric coverage for potential breast wound infection and wound care followup. Urology doesn't intend on preforming Problems include: -Breast wound secondary to malignancy -[id number] R-IDC, ER+ (90%), [place]-, HER2+ by FISH 2018, on anastrazole with refusal of HER-2 targeted and systemic therapy. She refused treatment, according to her , due to her feeling the hospital wasn't taking her seriously. -Right ureteral stone, right hydronephrosis. She will need ureteroscopy and procedure with urology, can discuss with her service -Depression; >1yr of symptoms. -Intermittent Tachycardia; repeating EKG, ordering cardiac monitoring. -Possible PNC allergy (hives, rash, no airway edema with pip-tazo) Barriers to DC include further oncologic planning; need to discuss if there is need for biopsy. Patient has expressed desire to restart treatment. No need for surgical intervention for wound per Dr. Almeida. Needs ongoing wound care. Need to arrange for urology, PCP followup. Full Code
[2020-01-08] MEDS ORDERED: PT OWN MED DRAWER 7, Y5N ONE ×2 (09:23→16:46)
[2020-01-08] MEDS: ANASTROZOLE 1 MG TABLET PO SCH (09:36)
[2020-01-08] MEDS: ENOXAPARIN NA (PORCINE) 40 MG/0.4 ML DISP.SYRIN SQ SCH (09:36)
--- NOTE | 2020-01-08 12:31 | PN ---
Physical Exam: SUBJECTIVE: Patient seen and examined at bedside. No acute events. Pt states she had a conversation with Heme/Onc and would like to proceed with therapy. OBJECTIVE: Vital Signs Period Temp Pulse Resp BP Sys/Laird Pulse Ox Last 24 Hr 98.1 F-99.8 F 80-99 18-20 90-120/52-68 98-100 Gen: AAOx3, NAD HEENT: NCAT, EOMI Cardio: rrr, normal s1s2, no mrg noted Pulm: cta b/l Chest: R breast with dressing Ext: no edema Laboratory Results - last 24 hr 01/06/20 19:40 CA 19-9 Antigen 27 CA 125 Antigen 72.0 H Active Medications Generic Name Dose Route Start Last Admin Trade Name Freq PRN Reason Stop Dose Admin Anastrozole 1 mg 01/08/20 10:00 01/08/20 09:36 Arimidex - PO 1 mg DAILY PAMELLA Administration Enoxaparin Sodium 40 mg 01/08/20 10:00 01/08/20 09:36 Lovenox - SQ 40 mg DAILY PAMELLA Administration Clindamycin Phosphate 600 mg in 50 mls @ 100 mls/hr 01/07/20 18:00 01/08/20 09:36 Cleocin 600 Mg Premix Ivpb - IVPB 100 mls/hr Q8H-IV PAMELLA Administration Protocol Ampicillin Sodium/Sulbactam 100 mls @ 200 mls/hr 01/07/20 13:00 01/08/20 11: 19 Sodium 3 gm/ Sodium Chloride IVPB 200 mls/hr Q8H-IV PAMELLA Administration Morphine Sulfate 2 mg 01/07/20 11:14 Morphine Sulfate IVPUSH Q4H PRN PAIN LEVEL 6-10 ASSESSMENT/PLAN: 54 y/o F with PMH exophytic R breast CA with mets lost to follow up from [facility] (has been on anastrazole with Dr. Rodas) who presented to [facility] seeking management of R breast wound. R breast mass -MS neg HER 2 pos -Dx in 2018 -maintained on anastrazole -refused targeted therapy in the past -now amenable to therapy with Heme/Onc team Visit type - Emergency Visit Emergency Visit: No - New Patient This patient is new to me today: Yes Date on this admission: 01/08/20 - Critical Care Critical Care patient: No ATTENDING PHYSICIAN STATEMENT I saw and evaluated the patient. I reviewed the resident's note and discussed the case with the resident. I agree with the resident's findings and plan as documented. SUBJECTIVE: OBJECTIVE: ASSESSMENT AND PLAN:
[2020-01-08] MEDS: ACETAMINOPHEN WITH CODEINE 300MG/30MG TABLET PO PRN ×2 (15:00→21:19)
[2020-01-09] MEDS: CLINDAMYCIN 600MG PREMIX IVPB 600 MG/50 ML BAG IVPB SCH (00:59)
[2020-01-09] MEDS: AMPICILLIN NA/SULBACTAM NA 3 GM in SODIUM CHLORIDE 100 ML IVPB SCH (01:13)
[2020-01-09] MEDS: ACETAMINOPHEN WITH CODEINE 300MG/30MG TABLET PO PRN ×2 (06:02→18:05)
[2020-01-09 08:05] LABS: BASO % 0.7 % (0-2.0); HEMATOCRIT 22.8 % (32.4-45.2); HEMOGLOBIN 7.7 GM/dL (10.7-15.3); LYMPH % 25.7 % (8-40); MCH 27.3 pg (25.7-33.7); MCHC 33.6 g/dl (32.0-36.0); MEAN CELL VOLUME 81.4 fl (80-96); MEAN PLT VOLUME 7.1 fl (7.5-11.1); NEUT % 66.6 % (42.8-82.8); PLATELET COUNT 190 K/MM3 (134-434); WHITE BLOOD COUNT 6.7 K/mm3 (4.0-10.0)
[2020-01-09 08:27] LABS: ALBUMIN 2.3 g/dl (3.4-5.0); BILIRUBIN,TOTAL 0.4 mg/dL (0.2-1); BLOOD UREA NITROGEN 9.3 mg/dL (7-18); CALCIUM 8.1 mg/dL (8.5-10.1); CREATININE 0.9 mg/dL (0.55-1.3); POTASSIUM 3.7 mmol/L (3.5-5.1); TOT PROT 5.4 g/dl (6.4-8.2)
[2020-01-09] MEDS: ENOXAPARIN NA (PORCINE) 40 MG/0.4 ML DISP.SYRIN SQ SCH (10:00)
[2020-01-09] MEDS ORDERED: PT OWN MED DRAWER 7, Y5N ONE ×3 (10:12→17:15)
[2020-01-09] MEDS: ANASTROZOLE 1 MG TABLET PO SCH (10:18)
--- NOTE | 2020-01-09 12:13 | PN ---
Progress Note, Physician History of Present Illness: stable no new issues - Current Medication List Current Medications: Active Medications Acetaminophen/Codeine Phosphate (Tylenol # 3 -) 1 tab PO Q8H PRN PRN Reason: PAIN LEVEL 1-5 Last Admin: 01/09/20 06:02 Dose: 1 tab Anastrozole (Arimidex -) 1 mg PO DAILY [facility] Last Admin: 01/09/20 10:18 Dose: 1 mg Clindamycin HCl (Cleocin -) 450 mg PO TID [facility] Enoxaparin Sodium (Lovenox -) 40 mg SQ DAILY [facility] Last Admin: 01/08/20 09:36 Dose: 40 mg - Objective Vital Signs: Vital Signs Temperature 98.1 F 01/09/20 10:00 Pulse Rate 107 H 01/09/20 10:00 Respiratory Rate 20 01/09/20 10:00 Blood Pressure 117/69 01/09/20 10:00 O2 Sat by Pulse Oximetry (%) 100 01/09/20 09:00 Constitutional: Yes: No Distress, Calm Cardiovascular: Yes: S1, S2 Respiratory: Yes: Regular, CTA Bilaterally Gastrointestinal: Yes: Normal Bowel Sounds, Soft Breast(s): Yes: Mass (rt side) Musculoskeletal: Yes: WNL Extremities: Yes: WNL Wound/Incision: Yes: Dressing Dry and Intact Neurological: Yes: Alert, Oriented Psychiatric: Yes: Alert, Oriented Labs: CBC, BMP 01/09/20 05:40 01/09/20 06:00 INR, PTT INR 1.28 (0.83-1.09) H 01/06/20 19:40 Assessment/Plan Stage IV Breast Ca with mets to LN throughout Necrotic R breast mass Normocytic anemia Depression with suicidal ideation plan continue abx await for cx reports rest as per the team surgery
--- NOTE | 2020-01-09 12:16 | PN ---
Progress Note, Physician History of Present Illness: stable no new issues feels better - Current Medication List Current Medications: Active Medications Acetaminophen/Codeine Phosphate (Tylenol # 3 -) 1 tab PO Q8H PRN PRN Reason: PAIN LEVEL 1-5 Last Admin: 01/09/20 06:02 Dose: 1 tab Anastrozole (Arimidex -) 1 mg PO DAILY [facility] Last Admin: 01/09/20 10:18 Dose: 1 mg Clindamycin HCl (Cleocin -) 450 mg PO TID [facility] Enoxaparin Sodium (Lovenox -) 40 mg SQ DAILY [facility] Last Admin: 01/08/20 09:36 Dose: 40 mg - Objective Vital Signs: Vital Signs Temperature 98.1 F 01/09/20 10:00 Pulse Rate 107 H 01/09/20 10:00 Respiratory Rate 20 01/09/20 10:00 Blood Pressure 117/69 01/09/20 10:00 O2 Sat by Pulse Oximetry (%) 100 01/09/20 09:00 Constitutional: Yes: No Distress, Calm Cardiovascular: Yes: S1, S2 Respiratory: Yes: Regular, CTA Bilaterally Gastrointestinal: Yes: Normal Bowel Sounds, Soft Breast(s): Yes: Mass, Other (infected wound) Musculoskeletal: Yes: Other Wound/Incision: Yes: Dressing Dry and Intact Neurological: Yes: Alert, Oriented Labs: CBC, BMP 01/09/20 05:40 01/09/20 06:00 INR, PTT INR 1.28 (0.83-1.09) H 01/06/20 19:40 Assessment/Plan Stage IV Breast Ca with mets to LN throughout Necrotic R breast mass Normocytic anemia Depression with suicidal ideation plan will jemal abbott switch to zosyn wound care final plan await for all identification of the organisms
[2020-01-09] MEDS ORDERED: DEXTROSE 5%-WATER - 50 ML IVPB ONE (13:15)
[2020-01-09] MEDS ORDERED: PIPERACILLIN/TAZOBACTAM 3.375 GM VIAL IVPB ONE (13:15)
[2020-01-09] MEDS: PIPERACILLIN/TAZOB 3.375 GM 3.375 GM in DEXTROSE 5%-WATER - 50 ML IVPB SCH ×2 (13:28→17:06)
[2020-01-09] MEDS ORDERED: CLINDAMYCIN HCL 150 MG CAPSULE (FP) PO SCH (14:00)
[2020-01-09 16:58] VITALS: BMI 19.2
--- NOTE | 2020-01-09 18:00 | PN ---
Physical Exam: SUBJECTIVE: Patient seen and examined at bedside. Did not want me to conduct a physical exam. OBJECTIVE: Vital Signs Period Temp Pulse Resp BP Sys/Laird Pulse Ox Last 24 Hr 97.8 F-98.4 F 90-107 20-20 91-126/51-73 100-100 GENERAL: The patient is awake, alert, and fully oriented, in no acute distress. HEAD: Normal with no signs of trauma. Laboratory Results - last 24 hr 01/06/20 01/09/20 01/09/20 14:00 05:40 06:00 WBC 6.7 RBC 2.80 L Hgb 7.7 L Hct 22.8 L MCV 81.4 MCH 27.3 MCHC 33.6 RDW 18.0 H Plt Count 190 MPV 7.1 L Absolute Neuts (auto) 4.4 Neutrophils % 66.6 Lymphocytes % 25.7 D Monocytes % 6.0 Eosinophils % 1.0 D Basophils % 0.7 Nucleated RBC % 0 Sodium 138 Potassium 3.7 Chloride 108 H Carbon Dioxide 24 Anion Gap 7 L BUN 9.3 Creatinine 0.9 Est GFR (CKD-EPI)AfAm 82.84 Est GFR (CKD-EPI)NonAf 71.48 Random Glucose 85 Calcium 8.1 L Total Bilirubin 0.4 AST 28 ALT 22 Alkaline Phosphatase 133 H Total Protein 5.4 L Albumin 2.3 L Carcinoembryonic Ag 84.9 H Active Medications Generic Name Dose Route Start Last Admin Trade Name Freq PRN Reason Stop Dose Admin Acetaminophen/Codeine Phosphate 1 tab 01/08/20 14:11 01/09/20 06:02 Tylenol # 3 - PO 1 tab Q8H PRN Administration PAIN LEVEL 1-5 Anastrozole 1 mg 01/08/20 10:00 01/09/20 10:18 Arimidex - PO 1 mg DAILY [facility] Administration Enoxaparin Sodium 40 mg 01/08/20 10:00 01/09/20 10:00 Lovenox - SQ Not Given DAILY [facility] Piperacillin Sod/Tazobactam 50 mls @ 100 mls/hr 01/09/20 12:15 01/09/20 17:06 Sod 3.375 gm/ Dextrose IVPB Not Given Q8H-IV [facility] Protocol ASSESSMENT/PLAN: Imaging: CT abd/pelvis: metastatic lymphadenopathy and right axillary lymphadenopathy, severe Rt sided hydro partially obstructed 10X8mm calculus within proximal ureter. Non-obstructing stones seen in both kidneys. Multiple sclerotic lesions in bony structures of chest. Echo- EF 55-60% Chest CT- mild scattered nodules with small rt pleural effusion and bibasilar atelectasis. US- normal GB and biliary tree 54 y/o F with PMH exophytic R breast CA with mets lost to follow up from [facility] (has been on anastrazole with Dr. Rodas) who presented to [facility] seeking management of R breast wound. #R breast fungating mass - s/p bx done at [facility] with poor wound healing - would require wound care as o/p -NH neg HER 2 pos -Dx in 2018 -maintained on anastrazole, pt refusing chemo therapy -now amenable to therapy with Heme/Onc team, Heme onc eval requested -Seen by surgery - no intervention at this time per Dr. Almeida. - c/w abx as per ID recs- pt had HIVES reaction to zosyn spoke with ID and will start pt on cefepime likely in AM. #Microcytic Hypochromic Anemia -Fe studies suggestive of inflammatory anemia with high ferritin -monitor cbc -B12 elevated, folate wnl -No transfusion at this time #Rt hydro 2/2 ureteral stone -10mm R renal stone -seen by urology- consider IR guided nephrostomy if pt becomes septic Visit type - Emergency Visit Emergency Visit: Yes ED Registration Date: 01/06/20 Care time: The patient presented to the Emergency Department on the above date and was hospitalized for further evaluation of their emergent condition. - New Patient This patient is new to me today: Yes Date on this admission: 01/09/20 - Critical Care Critical Care patient: No - Discharge Referral Referred to [facility] Med P.C.: No ATTENDING PHYSICIAN STATEMENT I saw and evaluated the patient. I reviewed the resident's note and discussed the case with the resident. I agree with the resident's findings and plan as documented. SUBJECTIVE: OBJECTIVE: ASSESSMENT AND PLAN:
--- NOTE | 2020-01-10 01:04 | PN ---
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 Had refused systemic Her2 targeeted therapy and systeic therapy. CT Chest/A/P: R. Pleural effusion, large exophytic mass, additional small R. breast mass w/ extensive lymphadenopathy, enlarged internal mammary lymph nodes , mild mediastinal and R hilar lymphadenopathy, scattered pulmonary nodules, mild retroperitoneal lymphadenopathy and multiple sclerotic bone lesions Patient presents with bleeding and discharge from the wound Will request wound care consult Continue IV antibiotics Will consider bone scan and biopsy of bone lesion to confirm metastatic disease Discussed Her 2 targeted therapies Refusing chemotherapy . She may consideer anastrozole /pertuzumab/r=trstuzumab She is still deciding regarding bone biopsy
[2020-01-10 06:49] LABS: BASO % 1.1 % (0-2.0); EOS % 1.6 % (0-4.5); HEMATOCRIT 24.8 % (32.4-45.2); HEMOGLOBIN 8.2 GM/dL (10.7-15.3); LYMPH % 28.4 % (8-40); MCH 27.2 pg (25.7-33.7); MCHC 32.9 g/dl (32.0-36.0); MEAN CELL VOLUME 82.6 fl (80-96); MONO % 5.4 % (3.8-10.2); NEUT % 63.5 % (42.8-82.8); PLATELET COUNT 222 K/MM3 (134-434); RBC 3.01 M/mm3 (3.60-5.2); RDW 17.9 % (11.6-15.6)
[2020-01-10 07:23] LABS: ALBUMIN 2.4 g/dl (3.4-5.0); BILIRUBIN,TOTAL 0.3 mg/dL (0.2-1); BLOOD UREA NITROGEN 10.6 mg/dL (7-18); CALCIUM 8.5 mg/dL (8.5-10.1); CREATININE 0.9 mg/dL (0.55-1.3); TOT PROT 5.6 g/dl (6.4-8.2)
[2020-01-10] MEDS ORDERED: CEFEPIME HCL 1 GM VIAL (RESTRICTED TO ID) ONE (10:11)
[2020-01-10] MEDS ORDERED: DEXTROSE 5%-WATER 100 ML IVPB ONE (10:12)
[2020-01-10] MEDS: ENOXAPARIN NA (PORCINE) 40 MG/0.4 ML DISP.SYRIN SQ SCH (10:37)
[2020-01-10] MEDS: ANASTROZOLE 1 MG TABLET PO SCH (10:37)
[2020-01-10] MEDS: CEFEPIME 1 GM in DEXTROSE 5%-WATER 100 ML IVPB SCH ×2 (10:37→21:37)
[2020-01-10] MEDS: ACETAMINOPHEN WITH CODEINE 300MG/30MG TABLET PO PRN (11:54)
--- NOTE | 2020-01-10 16:14 | PN ---
Teaching Attending Note Name of Resident: Arnie Alva ATTENDING PHYSICIAN STATEMENT I saw and evaluated the patient. I reviewed the resident's note and discussed the case with the resident. I agree with the resident's findings and plan as documented. SUBJECTIVE: Feeling well. complains of some R breast pain and malodour. No fever /chills. OBJECTIVE: Afebrile, Hemodynamically stable. Last Vital Signs Temp Pulse Resp BP Pulse Ox 98.5 F 74 20 96/61 100 01/10/20 14:00 01/10/20 14:00 01/10/20 14:01/10/20 14:01/10/20 09:00 HEENT - Atraumatic, Normocephalic. Heart - S1, S2, RRR Lungs - clear to auscultation Abdomen - Soft, non-tender. Bowel Sounds normal. Breast - R fungating mass dressed. Extremities - no edema, no calf tenderness. Laboratory Results - last 24 hr 01/10/20 01/10/20 06:20 06:20 WBC 8.0 RBC 3.01 L Hgb 8.2 L Hct 24.8 L MCV 82.6 MCH 27.2 MCHC 32.9 RDW 17.9 H Plt Count 222 MPV 7.0 L Absolute Neuts (auto) 5.1 Neutrophils % 63.5 Lymphocytes % 28.4 Monocytes % 5.4 Eosinophils % 1.6 Basophils % 1.1 Nucleated RBC % 0 Sodium 142 Potassium 4.0 Chloride 110 H Carbon Dioxide 25 Anion Gap 6 L BUN 10.6 Creatinine 0.9 Est GFR (CKD-EPI)AfAm 82.84 Est GFR (CKD-EPI)NonAf 71.48 Random Glucose 80 Calcium 8.5 Total Bilirubin 0.3 AST 28 ALT 25 Alkaline Phosphatase 137 H Total Protein 5.6 L Albumin 2.4 L Current Medications Generic Name Dose Route Start Last Admin Trade Name Freq PRN Reason Stop Dose Admin Acetaminophen/Codeine Phosphate 1 tab 01/08/20 14:11 01/10/20 11:54 Tylenol # 3 - PO 1 tab Q8H PRN Administration PAIN LEVEL 1-5 Anastrozole 1 mg 01/08/20 10:00 01/10/20 10:37 Arimidex - PO 1 mg DAILY [facility] Administration Docusate Sodium 100 mg 01/10/20 11:18 Colace - PO BID PRN CONSTIPATION Enoxaparin Sodium 40 mg 01/08/20 10:00 01/10/20 10:37 Lovenox - SQ Not Given DAILY [facility] Cefepime HCl 1 gm/ Dextrose 100 mls @ 100 mls/hr 01/10/20 10:00 01/10/20 10: 37 IVPB Not Given BID [facility] Protocol Home Medications Medication Instructions Recorded Anastrozole [Arimidex -] 1 mg PO DAILY 01/06/20 ASSESSMENT AND PLAN: 54 year old female with history of Fungating R Breast Cancer, 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 No fever/chills. 1. Fungating R breast Ca, metastatic CT A/P - metastatic lymphadenopathy and right axillary lymphadenopathy, Multiple sclerotic lesions in bony structures of chest Dx at [facility], wants to transfer care to [facility] Seen by Hematology/Oncology - declines chemotherapy but agrees to Anastrozole, Herceptin. See by Sx - no role for surgical intervention at this time. R Breast Wound Cx polymicrobial (Pseudomonas, NLFGNB, Diphtheria/Corynebacterium ) - on Cefepime - ID to guide further Abx therapy. Discharge pending ID Abx recommendations. 2. R Hydronephrosis sec to Ureteral Stone Seen by Urology - no intervention suggested except if sepsis were to develop in which case, IR Nephrostomy would be recommended. No signs of sepsis/infection currently. Urology follow up on discharge. 3. Normocytic Anemia - likely sec to chronic disease Stable. No evidence of acute blood loss. Further Management as per Hematology. DVT Px - Lovenox SQ Dispo - Home with Oncology follow up.
--- NOTE | 2020-01-10 21:32 | PN ---
Physical Exam: SUBJECTIVE: Patient seen and examined. Nurse reports pt refuses lovenox and cepepime due to her fear of having a rxn to the abx. OBJECTIVE: Vital Signs Period Temp Pulse Resp BP Sys/Laird Pulse Ox Last 24 Hr 98.3 F-99.7 F 74-131 18-20 92-98/59-64 100 GENERAL: The patient is awake, alert, and fully oriented, in no acute distress. NECK: Trachea midline, full range of motion, supple. Breast- Rt fungated breast lesion wrapped LUNGS: Breath sounds equal, clear to auscultation bilaterally, no wheezes, no crackles, no accessory muscle use. HEART: Regular rate and rhythm, S1, S2 without murmur, rub or gallop. ABDOMEN: Soft, nontender, nondistended EXTREMITIES: 2+ pulses, warm, well-perfused, no edema. Laboratory Results - last 24 hr 01/10/20 01/10/20 06:20 06:20 WBC 8.0 RBC 3.01 L Hgb 8.2 L Hct 24.8 L MCV 82.6 MCH 27.2 MCHC 32.9 RDW 17.9 H Plt Count 222 MPV 7.0 L Absolute Neuts (auto) 5.1 Neutrophils % 63.5 Lymphocytes % 28.4 Monocytes % 5.4 Eosinophils % 1.6 Basophils % 1.1 Nucleated RBC % 0 Sodium 142 Potassium 4.0 Chloride 110 H Carbon Dioxide 25 Anion Gap 6 L BUN 10.6 Creatinine 0.9 Est GFR (CKD-EPI)AfAm 82.84 Est GFR (CKD-EPI)NonAf 71.48 Random Glucose 80 Calcium 8.5 Total Bilirubin 0.3 AST 28 ALT 25 Alkaline Phosphatase 137 H Total Protein 5.6 L Albumin 2.4 L Active Medications Generic Name Dose Route Start Last Admin Trade Name Freq PRN Reason Stop Dose Admin Acetaminophen/Codeine Phosphate 1 tab 01/08/20 14:11 01/10/20 11:54 Tylenol # 3 - PO 1 tab Q8H PRN Administration PAIN LEVEL 1-5 Anastrozole 1 mg 01/08/20 10:00 01/10/20 10:37 Arimidex - PO 1 mg DAILY [facility] Administration Docusate Sodium 100 mg 01/10/20 11:18 Colace - PO BID PRN [facility]STIP[facility] Enoxaparin Sodium 40 mg 01/08/20 10:00 01/10/20 10:37 Lovenox - SQ Not Given DAILY [facility] Cefepime HCl 1 gm/ Dextrose 100 mls @ 100 mls/hr 01/10/20 10:00 01/10/20 10: 37 IVPB Not Given BID [facility] Protocol ASSESSMENT/PLAN: Imaging: CT abd/pelvis: metastatic lymphadenopathy and right axillary lymphadenopathy, severe Rt sided hydro partially obstructed 10X8mm calculus within proximal ureter. Non-obstructing stones seen in both kidneys. Multiple sclerotic lesions in bony structures of chest. Echo- EF 55-60% Chest CT- mild scattered nodules with small rt pleural effusion and bibasilar atelectasis. US- normal GB and biliary tree 54 y/o F with PMH exophytic R breast CA with mets lost to follow up from [facility] (has been on anastrazole with Dr. Rodas) who presented to [facility] seeking management of R breast wound. #R breast fungating mass, metastatic - s/p bx done at [facility] with poor wound healing draining blood. - would require wound care as o/p for -Wound Cx polymicrobial (Pseudomonas, NLFGNB, Diphtheria/Corynebacterium) - on Cefepime - ID to guide further Abx therapy. Discharge pending ID Abx recommendations. -DE neg HER 2 pos -Dx in 2018 -maintained on anastrazole, pt refusing chemo therapy -now amenable to therapy with Heme/Onc team, Heme onc eval giving chemo recommendations, aggreeing to herceptin -Seen by surgery - no intervention at this time per Dr. Almeida. #Normocytic Anemia - likely chronic, no acute blood loss, mgmt per Hematology -Fe studies suggestive of inflammatory anemia with high ferritin -monitor cbc -B12 elevated, folate wnl -No transfusion at this time #Rt hydro 2/2 ureteral stone -10mm R renal stone -seen by urology- consider IR guided nephrostomy if pt becomes septic DVT ppx: lovenox Visit type - Emergency Visit Emergency Visit: Yes ED Registration Date: 01/06/20 Care time: The patient presented to the Emergency Department on the above date and was hospitalized for further evaluation of their emergent condition. - New Patient This patient is new to me today: No - Critical Care Critical Care patient: No - Discharge Referral Referred to [facility] Med P.C.: No ATTENDING PHYSICIAN STATEMENT I saw and evaluated the patient. I reviewed the resident's note and discussed the case with the resident. I agree with the resident's findings and plan as documented. SUBJECTIVE: OBJECTIVE: ASSESSMENT AND PLAN:
[2020-01-10] MEDS: DOCUSATE SODIUM 100 MG CAPSULE (FP) PO PRN (21:59)
[2020-01-11] MEDS: ACETAMINOPHEN WITH CODEINE 300MG/30MG TABLET PO PRN ×3 (00:19→18:47)
[2020-01-11 07:13] LABS: BASO % 0.8 % (0-2.0); EOS % 1.5 % (0-4.5); HEMATOCRIT 24.5 % (32.4-45.2); HEMOGLOBIN 8.2 GM/dL (10.7-15.3); LYMPH % 31.5 % (8-40); MCH 27.6 pg (25.7-33.7); MCHC 33.4 g/dl (32.0-36.0); MEAN CELL VOLUME 82.4 fl (80-96); MEAN PLT VOLUME 7.2 fl (7.5-11.1); MONO % 4.5 % (3.8-10.2); NEUT % 61.7 % (42.8-82.8); PLATELET COUNT 237 K/MM3 (134-434); RBC 2.97 M/mm3 (3.60-5.2); WHITE BLOOD COUNT 7.1 K/mm3 (4.0-10.0)
[2020-01-11 07:45] LABS: ALBUMIN 2.5 g/dl (3.4-5.0); BILIRUBIN,TOTAL 0.3 mg/dL (0.2-1); BLOOD UREA NITROGEN 10.2 mg/dL (7-18); CALCIUM 8.6 mg/dL (8.5-10.1); CREATININE 0.9 mg/dL (0.55-1.3); POTASSIUM 4.2 mmol/L (3.5-5.1); TOT PROT 5.9 g/dl (6.4-8.2)
[2020-01-11] MEDS ORDERED: PT OWN MED DRAWER 7, Y5N ONE ×2 (10:41→17:11)
[2020-01-11] MEDS: CEFEPIME 1 GM in DEXTROSE 5%-WATER 100 ML IVPB SCH ×2 (11:20→21:16)
[2020-01-11] MEDS: ANASTROZOLE 1 MG TABLET PO SCH (11:20)
[2020-01-11] MEDS: ENOXAPARIN NA (PORCINE) 40 MG/0.4 ML DISP.SYRIN SQ SCH (11:21)
--- NOTE | 2020-01-11 13:09 | PN ---
Progress Note, Physician History of Present Illness: stable no new issues feels better - Current Medication List Current Medications: Active Medications Acetaminophen/Codeine Phosphate (Tylenol # 3 -) 1 tab PO Q8H PRN PRN Reason: PAIN LEVEL 1-5 Last Admin: 01/11/20 11:19 Dose: 1 tab Anastrozole (Arimidex -) 1 mg PO DAILY [facility] Last Admin: 01/11/20 11:20 Dose: 1 mg Docusate Sodium (Colace -) 100 mg PO BID PRN PRN Reason: CONSTIPATION Last Admin: 01/10/20 21:59 Dose: 100 mg Enoxaparin Sodium (Lovenox -) 40 mg SQ DAILY [facility] Last Admin: 01/11/20 11:21 Dose: 40 mg Cefepime HCl 1 gm/ Dextrose 100 mls @ 100 mls/hr IVPB BID [facility]; Protocol Last Admin: 01/11/20 11:20 Dose: Not Given - Objective Vital Signs: Vital Signs Temperature 98.1 F 01/11/20 09:00 Pulse Rate 99 H 01/11/20 09:00 Respiratory Rate 18 01/11/20 09:00 Blood Pressure 100/67 01/11/20 09:00 O2 Sat by Pulse Oximetry (%) 97 01/11/20 09:00 Constitutional: Yes: No Distress, Calm Cardiovascular: Yes: S1, S2 Respiratory: Yes: Regular, CTA Bilaterally Gastrointestinal: Yes: Normal Bowel Sounds, Soft Musculoskeletal: Yes: WNL Extremities: Yes: WNL Wound/Incision: Yes: Dressing Dry and Intact Neurological: Yes: Alert, Oriented Psychiatric: Yes: Alert, Oriented Labs: CBC, BMP 01/11/20 06:24 01/11/20 06:24 INR, PTT INR 1.28 (0.83-1.09) H 01/06/20 19:40 Assessment/Plan Stage IV Breast Ca with mets to LN throughout Necrotic R breast mass Normocytic anemia Depression with suicidal ideation plan await for sensitivities wound care ret as per the team
--- NOTE | 2020-01-11 13:10 | PN ---
Progress Note, Physician History of Present Illness: stable no new issues - Current Medication List Current Medications: Active Medications Acetaminophen/Codeine Phosphate (Tylenol # 3 -) 1 tab PO Q8H PRN PRN Reason: PAIN LEVEL 1-5 Last Admin: 01/11/20 11:19 Dose: 1 tab Anastrozole (Arimidex -) 1 mg PO DAILY [facility] Last Admin: 01/11/20 11:20 Dose: 1 mg Docusate Sodium (Colace -) 100 mg PO BID PRN PRN Reason: CONSTIPATION Last Admin: 01/10/20 21:59 Dose: 100 mg Enoxaparin Sodium (Lovenox -) 40 mg SQ DAILY [facility] Last Admin: 01/11/20 11:21 Dose: 40 mg Cefepime HCl 1 gm/ Dextrose 100 mls @ 100 mls/hr IVPB BID [facility]; Protocol Last Admin: 01/11/20 11:20 Dose: Not Given - Objective Vital Signs: Vital Signs Temperature 98.1 F 01/11/20 09:00 Pulse Rate 99 H 01/11/20 09:00 Respiratory Rate 18 01/11/20 09:00 Blood Pressure 100/67 01/11/20 09:00 O2 Sat by Pulse Oximetry (%) 97 01/11/20 09:00 Constitutional: Yes: No Distress, Calm Cardiovascular: Yes: S1, S2 Respiratory: Yes: Regular, CTA Bilaterally Gastrointestinal: Yes: Normal Bowel Sounds, Soft Musculoskeletal: Yes: WNL Extremities: Yes: WNL Neurological: Yes: Alert, Oriented Psychiatric: Yes: Alert, Oriented Labs: CBC, BMP 01/11/20 06:24 01/11/20 06:24 INR, PTT INR 1.28 (0.83-1.09) H 01/06/20 19:40 Assessment/Plan Stage IV Breast Ca with mets to LN throughout Necrotic R breast mass Normocytic anemia Depression with suicidal ideation wound infection plan can change abx to levaquin 750 mg daily for another 10 days wound care
--- NOTE | 2020-01-11 14:24 | PN ---
Teaching Attending Note Name of Resident: Arnie Alva ATTENDING PHYSICIAN STATEMENT I saw and evaluated the patient. I reviewed the resident's note and discussed the case with the resident. I agree with the resident's findings and plan as documented. SUBJECTIVE: Feeling well. R breast pain improved. No fever/chills. OBJECTIVE: Afebrile, Hemodynamically stable. Last Vital Signs Temp Pulse Resp BP Pulse Ox 98.1 F 99 H 18 100/67 97 01/11/20 09:00 01/11/20 09:00 01/11/20 09:00 01/11/20 09:00 01/11/20 09:00 Heart - S1, S2, RRR Lungs - clear to auscultation Abdomen - Soft, non-tender. Bowel Sounds normal. Breast - R fungating mass dressed. Extremities - no edema, no calf tenderness. Laboratory Results - last 24 hr 01/11/20 01/11/20 06:24 06:24 WBC 7.1 RBC 2.97 L Hgb 8.2 L Hct 24.5 L MCV 82.4 MCH 27.6 MCHC 33.4 RDW 18.0 H Plt Count 237 MPV 7.2 L Absolute Neuts (auto) 4.4 Neutrophils % 61.7 Lymphocytes % 31.5 Monocytes % 4.5 Eosinophils % 1.5 Basophils % 0.8 Nucleated RBC % 0 Sodium 142 Potassium 4.2 Chloride 110 H Carbon Dioxide 25 Anion Gap 7 L BUN 10.2 Creatinine 0.9 Est GFR (CKD-EPI)AfAm 82.84 Est GFR (CKD-EPI)NonAf 71.48 Random Glucose 83 Calcium 8.6 Total Bilirubin 0.3 AST 35 ALT 29 Alkaline Phosphatase 147 H Total Protein 5.9 L Albumin 2.5 L Current Medications Generic Name Dose Route Start Last Admin Trade Name Freq PRN Reason Stop Dose Admin Acetaminophen/Codeine Phosphate 1 tab 01/08/20 14:11 01/11/20 11:19 Tylenol # 3 - PO 1 tab Q8H PRN Administration PAIN LEVEL 1-5 Anastrozole 1 mg 01/08/20 10:00 01/11/20 11:20 Arimidex - PO 1 mg DAILY [facility] Administration Docusate Sodium 100 mg 01/10/20 11:18 01/10/20 21:59 Colace - PO 100 mg BID PRN Administration CONSTIPATION Enoxaparin Sodium 40 mg 01/08/20 10:00 01/11/20 11:21 Lovenox - SQ 40 mg DAILY [facility] Administration Cefepime HCl 1 gm/ Dextrose 100 mls @ 100 mls/hr 01/10/20 10:00 01/11/20 11: 20 IVPB Not Given BID [facility] Protocol Home Medications Medication Instructions Recorded Anastrozole [Arimidex -] 1 mg PO DAILY 01/06/20 levoFLOXacin [Levaquin] 750 mg PO DAILY 6 Days #6 tab 01/11/20 ASSESSMENT AND PLAN: 54 year old female with history of Fungating R Breast Cancer, 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, non-compliant with follow up, presents with malodour and some bleeding from breast mass. No fever/chills. 1. Fungating R breast Ca, metastatic CT A/P - metastatic lymphadenopathy and right axillary lymphadenopathy, Multiple sclerotic lesions in bony structures of chest Dx at [facility], wants to transfer care to [facility] Seen by Hematology/Oncology - declines chemotherapy but agrees to Anastrozole, Herceptin. See by Sx - no role for surgical intervention at this time. R Breast Wound Cx polymicrobial (Pseudomonas, NLFGNB, Diphtheria/Corynebacterium ) - evaluated by ID - for 10 additional days of Levofloxacin. Medically optimized for discharge. 2. R Hydronephrosis sec to Ureteral Stone Seen by Urology - no intervention suggested except if sepsis were to develop in which case, IR Nephrostomy would be recommended. No signs of sepsis/infection currently. Urology follow up on discharge. 3. Normocytic Anemia - likely sec to chronic disease Stable. No evidence of acute blood loss. Further Management as per Hematology. DVT Px - Lovenox SQ Dispo - Home with Oncology/urology follow up.
--- NOTE | 2020-01-11 17:54 | DS ---
Physical Exam: SUBJECTIVE: Patient seen and examined today. No acute complaints. OBJECTIVE: Vital Signs Period Temp Pulse Resp BP Sys/Laird Pulse Ox Last 24 Hr 98.1 F-99.5 F 83-106 18-20 100-112/60-76 97-100 PHYSICAL EXAM GENERAL: The patient is awake, alert, and fully oriented, in no acute distress. LUNGS: Breath sounds equal, clear to auscultation bilaterally HEART: Regular rate and rhythm, S1, S2 without murmur, rub or gallop. ABDOMEN: Soft, nontender, nondistended. EXTREMITIES: 2+ pulses, warm, well-perfused, no edema. NEUROLOGICAL: Cranial nerves II through XII grossly intact. Normal speech, gait not observed. PSYCH: Normal mood, normal affect. SKIN: rt wrapped fungating breast lesion LABS Laboratory Results - last 24 hr 01/11/20 01/11/20 06:24 06:24 WBC 7.1 RBC 2.97 L Hgb 8.2 L Hct 24.5 L MCV 82.4 MCH 27.6 MCHC 33.4 RDW 18.0 H Plt Count 237 MPV 7.2 L Absolute Neuts (auto) 4.4 Neutrophils % 61.7 Lymphocytes % 31.5 Monocytes % 4.5 Eosinophils % 1.5 Basophils % 0.8 Nucleated RBC % 0 Sodium 142 Potassium 4.2 Chloride 110 H Carbon Dioxide 25 Anion Gap 7 L BUN 10.2 Creatinine 0.9 Est GFR (CKD-EPI)AfAm 82.84 Est GFR (CKD-EPI)NonAf 71.48 Random Glucose 83 Calcium 8.6 Total Bilirubin 0.3 AST 35 ALT 29 Alkaline Phosphatase 147 H Total Protein 5.9 L Albumin 2.5 L HOSPITAL COURSE: Date of Admission:01/06/20 Imaging: CT abd/pelvis: metastatic lymphadenopathy and right axillary lymphadenopathy, severe Rt sided hydro partially obstructed 10X8mm calculus within proximal ureter. Non-obstructing stones seen in both kidneys. Multiple sclerotic lesions in bony structures of chest. Echo- EF 55-60% Chest CT- mild scattered nodules with small rt pleural effusion and bibasilar atelectasis. US- normal GB and biliary tree 54 y/o F with PMH exophytic R breast CA with mets lost to follow up from [facility] (has been on anastrazole with Dr. Rodas) who was admitted for management of R fungating wound after biopsy. Pt had malodorous and bloody discharge. Surgery seen patient (Elle) who deemed surgery not necessary and recommended wound care consult. Pt was seen by wound care and told to use zeroform wrap for antimicrobial coverage. Pt was initially given zosyn by ID ( Ashley) but patient had hives rxn so it was d/c'd and was supposed to receive cefepime but pt refused as well as lovenox was refused due to her fear of having another rxn. Pt was d/c'd on po levaquin 750 daily for 6 more days as wound cx was growing polymicrobial organisms (Pseudomonas, NLFGNB, Diphtheria/ Corynebacterium). Pt was told to f/u with uro for rt hydro 2/2 10 mm ureteral stone, given URO (silvia) recommended IR intervention if septic for nephrostomy placement but no need at this time. Heme onc eval stating CT negative HER 2 positive breast mass dx'd in 2018 and would like to resume care w Dr. Doan, pt refusing chemo only would like anastrozole and possibly herceptin. Pt will follow up with wound care and heme onc after this. Spoke with wound care office to call pt with next available appt with Dr. Gutierrez. Pt seen by psych (Kofi) while here as well and deemed mentally stable and not suicidal. Date of Discharge: 01/11/20 Minutes to complete discharge: 35 Discharge Summary Problems reviewed: Yes Reason For Visit: MALIGNANT NEOPLASM OF BREAST Current Active Problems Breast cancer (Chronic) Breast wound (Chronic) Hydronephrosis, right (Chronic) Right ureteral calculus (Chronic) Condition: Improved - Instructions Diet, Activity, Other Instructions: You were seen in the hospital for evaluation of a right breast wound. You were treated with IV antibiotics for your wound infection and you were evaluated by the infectious disease doctor. A wound culture was taken that was positive for multiple organisms. Additionally, you were seen by wound care to address your right breast wound. During your hospital stay, your symptoms improved. You are now safe for discharge home with oral antibiotics. Medications We have made the following changes to your medications: Please START taking Levaquin 750mg by mouth once a day for 6 more days. Your last day will be on Jan 16. Please START taking acetaminophen with codeine 1 tablet by mouth every 8hours as needed for pain. Please continue taking the rest of your medications as prescribed. Recommendations Please follow up with your primary care physician. If you do not have one, you may make an appointment at [facility] at the residency clinic with Dr. Arnie Alva. Please follow up with your hematology oncologist, Dr. Theodore within 1 week for further outpatient work up of your breast cancer. Please follow up at the wound care clinic with Dr. Gutierrez within 1 week. Please follow up with bladder/kidney doctor (urologist- Dr. Valdovinos) for your kidney stone. If you experience persistent and worsening fevers, chills, chest pain, shortness of breath or other associated symptoms, please proceed to your nearest emergency room immediately. Referrals: [facility] [place] [place] [Provider Group] - 1 Week Akshat Ramirez MD [Staff Physician] - 1 Week Ewelina Moy MD [Staff Physician] - 1 Week David Gutierrez DO [Staff Physician] - 1 Week Galdino Valdovinos MD [Staff Physician] - Arnie Alva RES [Resident] - 1 Week Disposition: HOME - Home Medications Comprehensive Discharge Medication List: Ambulatory Orders Anastrozole [Arimidex -] 1 mg PO DAILY 01/06/20 Acetaminophen W/ Codeine #3 [Tylenol # 3 -] 1 tab PO Q8H PRN 7 Days #21 tablet MDD 3 pills 01/11/20 levoFLOXacin [Levaquin] 750 mg PO DAILY 6 Days #6 tab 01/11/20 This patient is new to me today: No Emergency Visit: Yes ED Registration Date: 01/06/20 Care time: The patient presented to the Emergency Department on the above date and was hospitalized for further evaluation of their emergent condition. Critical Care patient: No - Discharge Referral Referred to [facility] No ATTENDING PHYSICIAN STATEMENT I saw and evaluated the patient. I reviewed the resident's note and discussed the case with the resident. I agree with the resident's findings and plan as documented. SUBJECTIVE: OBJECTIVE: ASSESSMENT AND PLAN:
[2020-01-12] MEDS: DOCUSATE SODIUM 100 MG CAPSULE (FP) PO PRN ×2 (06:25→10:59)
[2020-01-12] MEDS: ACETAMINOPHEN WITH CODEINE 300MG/30MG TABLET PO PRN ×2 (06:25→16:56)
[2020-01-12] MEDS: ENOXAPARIN NA (PORCINE) 40 MG/0.4 ML DISP.SYRIN SQ SCH (10:59)
[2020-01-12] MEDS: ANASTROZOLE 1 MG TABLET PO SCH (10:59)
[2020-01-12] MEDS: CEFEPIME 1 GM in DEXTROSE 5%-WATER 100 ML IVPB SCH (10:59)
--- NOTE | 2020-01-12 13:41 | PN ---
Progress Note, Physician History of Present Illness: stable no new issues - Current Medication List Current Medications: Active Medications Acetaminophen/Codeine Phosphate (Tylenol # 3 -) 1 tab PO Q8H PRN PRN Reason: PAIN LEVEL 1-5 Last Admin: 01/12/20 06:25 Dose: 1 tab Anastrozole (Arimidex -) 1 mg PO DAILY [facility] Last Admin: 01/12/20 10:59 Dose: 1 mg Docusate Sodium (Colace -) 100 mg PO BID PRN PRN Reason: CONSTIPATION Last Admin: 01/12/20 10:59 Dose: 100 mg Enoxaparin Sodium (Lovenox -) 40 mg SQ DAILY [facility] Last Admin: 01/12/20 10:59 Dose: 40 mg Cefepime HCl 1 gm/ Dextrose 100 mls @ 100 mls/hr IVPB BID [facility]; Protocol Last Admin: 01/12/20 10:59 Dose: Not Given - Objective Vital Signs: Vital Signs Temperature 98.2 F 01/12/20 06:00 Pulse Rate 94 H 01/12/20 06:00 Respiratory Rate 18 01/12/20 06:00 Blood Pressure 107/58 L 01/12/20 06:00 O2 Sat by Pulse Oximetry (%) 100 01/11/20 21:00 Constitutional: Yes: No Distress, Calm Cardiovascular: Yes: S1, S2 Respiratory: Yes: Regular, CTA Bilaterally Gastrointestinal: Yes: Normal Bowel Sounds, Soft Musculoskeletal: Yes: WNL Extremities: Yes: WNL Wound/Incision: Yes: Dressing Dry and Intact Neurological: Yes: Alert, Oriented Psychiatric: Yes: Alert, Oriented Labs: CBC, BMP 01/11/20 06:24 01/11/20 06:24 INR, PTT INR 1.28 (0.83-1.09) H 01/06/20 19:40 Assessment/Plan Stage IV Breast Ca with mets to LN throughout Necrotic R breast mass Normocytic anemia Depression with suicidal ideation wound infection plan can change abx to levaquin 750 mg daily for another 10 days wound care
--- NOTE | 2020-01-12 14:37 | PN ---
Teaching Attending Note Name of Resident: Arnie Alva ATTENDING PHYSICIAN STATEMENT I saw and evaluated the patient. I reviewed the resident's note and discussed the case with the resident. I agree with the resident's findings and plan as documented. SUBJECTIVE: Feeling well. R breast pain controlled on Tylenol 3. No fever/ chills. OBJECTIVE: Afebrile, Hemodynamically stable. Last Vital Signs Temp Pulse Resp BP Pulse Ox 98.2 F 94 H 18 107/58 L 100 01/12/20 06:00 01/12/20 06:00 01/12/20 09:00 01/12/20 06:00 01/12/20 09:00 Heart - S1, S2, RRR Lungs - clear to auscultation Abdomen - Soft, non-tender. Bowel Sounds normal. Breast - R fungating mass dressed. Extremities - no edema, no calf tenderness. Current Medications Generic Name Dose Route Start Last Admin Trade Name Freq PRN Reason Stop Dose Admin Acetaminophen/Codeine Phosphate 1 tab 01/08/20 14:11 01/12/20 06:25 Tylenol # 3 - PO 1 tab Q8H PRN Administration PAIN LEVEL 1-5 Anastrozole 1 mg 01/08/20 10:00 01/12/20 10:59 Arimidex - PO 1 mg DAILY PAMELLA Administration Docusate Sodium 100 mg 01/10/20 11:18 01/12/20 10:59 Colace - PO 100 mg BID PRN Administration CONSTIPATION Enoxaparin Sodium 40 mg 01/08/20 10:00 01/12/20 10:59 Lovenox - SQ 40 mg DAILY PAMELLA Administration Cefepime HCl 1 gm/ Dextrose 100 mls @ 100 mls/hr 01/10/20 10:00 01/12/20 10: 59 IVPB Not Given BID PAMELLA Protocol Home Medications Medication Instructions Recorded Anastrozole [Arimidex -] 1 mg PO DAILY 01/06/20 levoFLOXacin [Levaquin] 750 mg PO DAILY 6 Days #6 tab 01/11/20 Acetaminophen W/ Codeine #3 1 tab PO Q8H PRN #21 tablet MDD 3 01/12/20 [Tylenol # 3 -] tabs ASSESSMENT AND PLAN: 54 year old female with history of Fungating R Breast Cancer, diagnosed to be HER2 pos/ER pos at [facility], non-compliant with follow up, presents with malodour and some bleeding from breast mass. No fever/chills. 1. Fungating R breast Ca, metastatic CT A/P - metastatic lymphadenopathy and right axillary lymphadenopathy, Multiple sclerotic lesions in bony structures of chest Dx at [facility], wants to transfer care to [facility] Seen by Hematology/Oncology - declines chemotherapy but agrees to Anastrozole, Herceptin. See by Sx - no role for surgical intervention at this time. R Breast Wound Cx polymicrobial (Pseudomonas, NLFGNB, Diphtheria/Corynebacterium ) - evaluated by ID - for 10 additional days of Levofloxacin. Medically optimized for discharge. 2. R Hydronephrosis sec to Ureteral Stone Seen by Urology - no intervention suggested except if sepsis were to develop in which case, IR Nephrostomy would be recommended. No signs of sepsis/infection currently. Urology follow up on discharge. 3. Normocytic Anemia - likely sec to chronic disease Stable. No evidence of acute blood loss. Further Management as per Hematology. DVT Px - Lovenox SQ Dispo - Home with Oncology/urology follow up.
[2020-01-12] MEDS ORDERED: levoFLOXacin 750 MG TABLET PO SCH ×2 (17:30)
[2020-01-12 18:56] VITALS: BP 112/53; PULSE 104; TEMP 99
== END 2020-01-12 19:11 | disposition home health service (06) | DRG 382 ==
LOC: JER 05:53 → JERBED 07:08 → J5S 14:39 → J4W 01-07 11:10
PROVIDERS: ADMIT Internal Medicine
DX: C50.919 Malignant neoplasm of unspecified site of unspecified female breast (principal); F32.9 Major depressive disorder, single episode, unspecified; N13.2 Hydronephrosis with renal and ureteral calculous obstruction; N64.1 Fat necrosis of breast; D64.9 Anemia, unspecified; R45.851 Suicidal ideations; S21.009A Unspecified open wound of unspecified breast, initial encounter; C79.51 Secondary malignant neoplasm of bone; C77.9 Secondary and unspecified malignant neoplasm of lymph node, unspecified; R00.0 Tachycardia, unspecified; X58.XXXA Exposure to other specified factors, initial encounter; Y93.9 Activity, unspecified; Y92.89 Other specified places as the place of occurrence of the external cause; Y99.9 Unspecified external cause status
CPT/HCPCS: 36415; 70450-TC; 71045-TC-FY; 71260-TC; 74177-TC; 76705-TC; 80048; 80053; 81003; 82378; 82607; 82728; 82746; 83540; 83550; 83735; 84100; 85025; 85027; 85044; 85610; 85651; 86141; 86301; 86304; 86850; 86900; 86901; 87070; 87077; 87086; 87186; 87205; 93005; 93010; 93306-TC; 99283-25; J0131; J7030; Q9967

== ENCOUNTER 2020-02-02 11:13 | Emergency (ER) | payer OTHER ==
[2020-02-02 11:21] VITALS: TEMP 97.8; BMI 18.8
[2020-02-02] MEDS ORDERED: SODIUM CHLORIDE 1,000 ML IV STA (12:12)
--- NOTE | 2020-02-02 12:20 | PDOC ---
History of Present Illness - General Chief Complaint: Back Pain Stated Complaint: SENT BY DOC Time Seen by Provider: 02/02/20 11:55 History Source: Patient Exam Limitations: No Limitations - History of Present Illness Initial Comments: Tamra Purcell is a 54 yo F w a pmh of R breast cancer HER2 positive with metastases, hydronephrosis with b/l stones, and normocytic anemia who presents to the [facility] er sent in by Dr. Princess Oliveira from the resident clinic to have an MRI to r/o cord compression as the patient has bilateral lower extremity weakness and there is concern that her breast cancer has now metastasized to her back. The patient endorses new onset urinary retention and significant urgency to urinate all the time. She states her leg weakness is relatively new in onset but she has her good days and bad days. Recently, most days have been bad and she states she can barely move her right leg. She is able to lift her left leg but has a significant amount of weakness. She states she is in this hospital today because she is looking for a new PCP. Patient endorses nausea but denies vomiting. Denies fevers, chills, or recent infections. Denies chest pain, SOB, difficulty breathing, headache, blurry vision. Denies hand tingling, numbness, weakness. Denies sensory changes in legs. PCP: Princess Thompson (Resident clinic patient) Vascular: Dr. Gutierrez Onc: Dr. Theodore PSH: None reported Allergies: pipercillin tazbactam Social Hx: Former smokes, 10 pack year, quit 2 years ago. Denies alcohol, or illicit drug usage. Pt. lives at home with her Fiance who has been having to increasingly help Pt. with daily activities with Pt.'s sister. Past History - Past Medical History Allergies/Adverse Reactions: Allergies Allergy/AdvReac Type Severity Reaction Status Date / Time piperacillin [From Zosyn] Allergy Mild Hives Verified 01/19/20 12:14 tazobactam [From Zosyn] Allergy Mild Hives Verified 01/19/20 12:14 Home Medications: Ambulatory Orders Anastrozole [Arimidex -] 1 mg PO DAILY 01/06/20 Acetaminophen W/ Codeine #3 [Tylenol # 3 -] 1 tab PO Q8H PRN #21 tablet MDD 3 tabs 01/12/20 Anemia: Yes Cancer: Yes (r breast with mets.) COPD: No Hypercholesterolemia: No Liver Disease: No - Surgical History Cardiac Surgery: No GI Surgery: No - Immunization History Immunization Up to Date: No - Psycho Social/Smoking Cessation Hx Smoking History: Never smoked Have you smoked in the past 12 months: No If you are a former smoker, when did you quit?: 2016 Information on smoking cessation initiated: No Hx Alcohol Use: No Drug/Substance Use Hx: No Substance Use Type: None Review of Systems - Review of Systems Able to Perform ROS?: Yes Comments:: CONSTITUTIONAL: Present: Fatigue Absent: fever, no chills EYES: Absent: visual changes ENT: Absent: ear pain, no sore throat CARDIOVASCULAR: Absent: chest pain, no palpitations RESPIRATORY: Absent: cough, no SOB GI: Present: Nausea Absent: abdominal pain, no vomiting, no constipation, no diarrhea GENITOURINARY: Present: urgency Absent: dysuria, no frequency, no hematuria MUSKULOSKELETAL: Present: Back pain Absent: no arthralgia, no myalgia SKIN: Absent: rash NEURO: Absent: headache *Physical Exam - Vital Signs Last Vital Signs Temp Pulse Resp BP Pulse Ox 97.8 F 115 H 16 115/77 99 02/02/20 11:17 02/02/20 11:17 02/02/20 11:17 02/02/20 11:17 02/02/20 11:17 - Physical Exam GENERAL: Well-appearing, well-nourished. No apparent distress. HEENT: Normocephalic, atraumatic. PERRL, EOM intact. CARDIOVASCULAR: Tachycardic rate. Normal S1, S2. Regular rhythm. PULMONARY: No evidence of respiratory distress. Lungs clear to auscultation bilaterally. No wheezing, rales or rhonchi. ABDOMEN: Soft, non-distended, non-tender. BACK: There is lower thoracic/upper lumbar midline TTP. No paraspinal TTP. EXTREMITIES: Normal ROM in upper extremities. No gross deformities. SKIN: Warm, dry. No rash NEUROLOGICAL: CN 2-12 grossly intact. Patient cannot lift her right leg on the bed. She has 2/5 left leg strength. Normal sensation in both lower extremities. 2+ DP/PT pulses b/l ED Treatment Course - LABORATORY CBC & Chemistry Diagram: 02/02/20 12:25 02/02/20 12:25 - RADIOLOGY Radiology Studies Ordered: Category Date Time Status LUMBAR SPINE MRI W/O CONTRAST [MRI] Stat MRI 02/02/20 12:15 Ordered THORACIC SPINE MRI W/O CONTR [MRI] Stat MRI 02/02/20 12:15 Ordered Medical Decision Making - Medical Decision Making Tamra Purcell is a 54 yo F w a pmh of R breast cancer HER2 positive with met astases, hydronephrosis with b/l stones, and normocytic anemia who presents to the [facility] er sent in by Dr. Princess Oliveira from the resident clinic to have an MRI to r/o cord compression as the patient has bilateral lower extremity weakness and there is concern that her breast cancer has now metastasized to her back. The patient endorses new onset urinary retention and significant urgency to urinate all the time. She states her leg weakness is relatively new in onset but she has her good days and bad days. Recently, most days have been bad and she states she can barely move her right leg. She is able to lift her left leg but has a significant amount of weakness. She states she is in this hospital today because she is looking for a new PCP. Vital Signs Temp Pulse Resp BP Pulse Ox 97.8 F 115 H 16 115/77 99 02/02/20 11:17 02/02/20 11:17 02/02/20 11:17 02/02/20 11:17 02/02/20 11:17 DDx IBNLT: Cord compression, cauda equina, conus medularis, electrolyte/metabolic disturbance, epidural abscess Plan: Labs, Urine, EKG, CT, Bladder scan, MRI, admission to hospital - Dr. Payton requested this patient be admitted to [facility] as this is a resident patient and she does not want the admission. - I spoke with MRI who has an openning at 1:30 - Patient brought over to MRI at 1:30 but unable to complete exam because too much pain lying flat. - 4 mg of morphine given and patient brought over to CT to evaluate cord compression Labs: Elevated ESR and CRP POCUS Bladder: 200 CC of urine in bladder EKG: NS rate of 99, narrow complexes, normal axis, no hypertrophy, no ST elevations or depressions, QTc 449, [place] 142 CT: Confirms Cord compression MRI: Unable to obtain 2/2 pain Disposition: Admission to hospital [facility] - neurosurgery resident Dr. Garcia - neurosurgery attending ER attending: Dr. Guerrero Discharge - Discharge Information Problems reviewed: Yes Clinical Impression/Diagnosis: Cord compression Breast cancer Qualifiers: Breast location: unspecified site of breast Estrogen receptor status: positive Patient sex: female Laterality: left Qualified Code(s): C50.912 - Malignant neoplasm of unspecified site of left female breast Condition: Stable Disposition: TRANSFER ACUTE CARE/OTHER HOSP - Admission No - Follow up/Referral Referrals: Imnai Georges MD [Primary Care Provider] - - Patient Discharge Instructions - Post Discharge Activity - Transfer to Acute Care Facility Receiving Facility Name: [facility] Accepting Physician:: Dr. Garcia Transfer Comment: Patient has cord compression and we have no neurosurgeon on site to evaluate patient
[2020-02-02 12:46] LABS: BASO % 1.7 % (0-2.0); EOS % 0.3 % (0-4.5); HEMATOCRIT 34.5 % (32.4-45.2); HEMOGLOBIN 11.3 GM/dL (10.7-15.3); LYMPH % 26.9 % (8-40); MCH 27.4 pg (25.7-33.7); MCHC 32.7 g/dl (32.0-36.0); MEAN PLT VOLUME 7.3 fl (7.5-11.1); MONO % 4.8 % (3.8-10.2); NEUT % 66.3 % (42.8-82.8); PLATELET COUNT 206 K/MM3 (134-434); RBC 4.12 M/mm3 (3.60-5.2); RDW 18.7 % (11.6-15.6); WHITE BLOOD COUNT 5.1 K/mm3 (4.0-10.0)
[2020-02-02] MEDS ORDERED: morphine CARPU-JECT 2 MG/1 ML DISP.SYRIN IVPUSH ONE (12:52)
--- NOTE | 2020-02-02 12:53 | PDOC ---
Documentation entered by Xiomara Mandujano SCRIBE, acting as scribe for Jere Harris MD. Jere Harris MD: This documentation has been prepared by the Nazia kruse Nirvannie, SCRIBE, under my direction and personally reviewed by me in its entirety. I confirm that the documentation accurately reflects all work, treatment, procedures, and medical decision making performed by me. Attending Attestation - Resident Resident Name: Taqueria Ji - ED Attending Attestation I have performed the following: I have examined & evaluated the patient, The case was reviewed & discussed with the resident, I agree w/resident's findings & plan, Exceptions are as noted - HPI HPI: 02/02/20 12:52 54y F hx of metastatic R breast ca with a chronic R chest wound secondary to biopsy presents with 2 weeks of b/l leg weakness. Patient had a recent admission for management of her chest wound she was discharged at approximately 1 to 2 days later started feeling mild bilateral leg weakness and intermittent mid back pain. Patient denies any history of traumas or falls, she was given follow-up With a therapist who thought she may been deconditioned from her hospitalization. She was in process of getting a walker however her weakness and ability to ambulate became worse and worse. Patient denies any urinary or bowel incontinence, she does state that she has had less bowel movements that she attributes to her pain medication. The patient Denies pio numbness or tingling but does state that from her mid back and down her legs it feels a little different/strange. The patient denies any fever, chills, nausea, vomiti ng, chest pain, palpitations, abdominal pain. Patient has no prior history back - Physicial Exam PE: Exam: GENERAL: The patient is awake, alert, and fully oriented, Nontoxic - in no acute distress. HEAD: Normocephalic, atraumatic. EYES: extraocular movements intact, sclera anicteric, conjunctiva clear. ENT: Normal voice, Moist mucous membranes. NECK: Normal range of motion, supple LUNGS: Breath sounds equal, clear to auscultation bilaterally. No wheezes, no rhonchi, no rales. dressed wound on R chest without signs of erythmea/induration HEART: Regular rate and rhythm, normal S1 and S2 without murmur, rub or gallop. ABDOMEN: Soft, nontender, No guarding, no rebound. No CVA tenderness EXTREMITIES: Normal range of motion, no edema. NEUROLOGICAL: No facial assymetry, Normal speech, RLE 2/5 hip flexion R, R knee flexion 4/5, L hip flexion 4/5, R knee flexion 4/5. sensation intact and symmetric. bl UE 5/5 PSYCH: Normal mood, normal affect. SKIN: Warm, Dry, normal turgor, - Medical Decision Making 02/02/20 12:15 Concern for cord compression secondary to malignancy Will obtain MRI of the spine 02/02/20 12:52 02/02/20 12:53 02/02/20 16:[address] there is disruption of the spinous processes in the thoracic region that approximately the patient's location of pain. Waiting for final read however in light of the patient's neurologic symptoms will transfer for further management as neurosurgery is not Available at our institution. The patient was seen and examined to determine medical stability. The patient is MEDICALLY STABLE at this time. Labs, EKG, radiological studies were ordered to expedite the patient's care. I certify that I have discussed with the patient and/or his environmental marketing representative the following risks and benefits of the proposed transfer. Risks include worsening of patients condition during transport,auto accident, or permanent disability. Benefits include receiving specialized care not available at this facility. I certify that, based on the information available at this time, the medical benefits reasonably expected from the provision of appropriate medical treatment at the receiving facility outweigh the increased risk to the patient. I believe the patient/relative/guardian understands what I have explained and answered. The patient will be transferred to [facility] for further management Heart Score/ECG Review - ECG Impressions Comment:: 02/02/20 13:37 Twelve-lead EKG was performed and reviewed by me. There is normal sinus rhythm with a normal rate. Rate of [address] changes suggestive of acute ischemia
[2020-02-02 13:09] LABS: ALBUMIN 3.2 g/dl (3.4-5.0); BILIRUBIN,TOTAL 0.7 mg/dL (0.2-1); BLOOD UREA NITROGEN 12.2 mg/dL (7-18); CALCIUM 9.5 mg/dL (8.5-10.1); CREATININE 0.9 mg/dL (0.55-1.3); POTASSIUM 3.9 mmol/L (3.5-5.1); TOT PROT 7.3 g/dl (6.4-8.2)
[2020-02-02] MEDS ORDERED: MORPHINE SULFATE 2 MG/ML VIAL ONE (13:32)
[2020-02-02 13:35] LABS: ERYTHROCYTE SEDIMENTATION RATE 88 mm/hr (0-30)
--- NOTE | 2020-02-02 13:58 | EKG ---
Test Reason : Blood Pressure : / mmHG Vent. Rate : 099 BPM Atrial Rate : 099 BPM P-R Int : 142 ms QRS Dur : 070 ms QT Int : 350 ms P-R-T Axes : 065 025 074 degrees QTc Int : 449 ms NORMAL SINUS RHYTHM SEPTAL INFARCT , AGE UNDETERMINED ABNORMAL ECG WHEN COMPARED WITH ECG OF 06-JAN-2020 07:13, SEPTAL INFARCT IS NOW PRESENT Confirmed by GAYLE GELLER MD ([id number]) on 02/02/2020 1:58:08 PM Referred By: Confirmed By:GAYLE GELLER MD
[2020-02-02] MEDS ORDERED: morphine CARPU-JECT 4 MG/1 ML DISP.SYRIN IVPUSH ONE (14:40)
[2020-02-02] MEDS ORDERED: morphine SULFATE 4 MG/ML VIAL ONE (14:48)
[2020-02-02 16:52] VITALS: BP 135/76; PULSE 98
== END 2020-02-02 18:00 | disposition short-term general hospital (02) ==
LOC: JER 11:13
PROC: 3E033NZ Introduction of Analgesics, Hypnotics, Sedatives into Peripheral Vein, Percutaneous Approach (ICD-10-PCS; principal; 2020-02-02)
PROC: BT40ZZZ Ultrasonography of Bladder (ICD-10-PCS; 2020-02-02)
DX: G95.20 Unspecified cord compression (principal); C50.912 Malignant neoplasm of unspecified site of left female breast; Z88.1 Allergy status to other antibiotic agents; Z87.448 Personal history of other diseases of urinary system; D64.9 Anemia, unspecified
CPT/HCPCS: 36415; 72130-TC; 72133-TC; 76857; 80053; 85025; 85651; 86140; 93005; 93010; 96374; 99285-25; J7030; Q9967